=== PATIENT | female | born 1955 | race Caucasian/White ===

== ENCOUNTER 2016-04-09 17:11 | Inpatient (IN) | payer BC, OTHER ==
[2016-04-09] MEDS ORDERED: LORazepam 2 MG/ML SYRINGE IM STA (17:41)
[2016-04-09] MEDS ORDERED: ACETAMINOPHEN TAB 500 MG TAB PO STA (17:41)
[2016-04-09] MEDS ORDERED: LORazepam 2 MG/ML SYRINGE IV STA (18:07)
[2016-04-09 18:18] LABS: Basophils % (A) 0 %; CH 31.2; CHCM 34.6; Eosinophils # (A) 0.1 k/uL (0-0.7); Eosinophils % (A) 1 %; HCT 45.4 % (34.0-46.0); HDW 2.64; HGB 15.6 gm/dL (11.4-16.0); Luc # (Auto) 0.16; Luc % (Auto) 2; Lymphocytes # (A) 1.6 k/uL (1.0-4.8); Lymphocytes % (A) 17 %; MCHC 34.3 g/dL (31.0-37.0); MCV 90.4 fL (80.0-100.0); Mean Platelet Volume 7.6; Monocytes # (A) 0.5 k/uL (0-1.0); Monocytes % (A) 6 %; Neutrophils % (A) 74 %; RBC 5.03 m/uL (3.80-5.40); RDW 12.6 % (11.5-15.5); WBC 9.5 k/uL (3.8-10.6); WBC (Perox) 9.44
[2016-04-09 18:19] LABS: Appearance,Urine Clear (Clear); Bacteria,Urine Rare /hpf; Bilirubin,Urine Negative (Negative); Glucose,Urine (UA) Negative (Negative); Ketones,Urine Negative (Negative); Leukocyte Esterase,Urine Small (Negative); Mucus,Urine Occasional /hpf; Nitrite,Urine Negative (Negative); Particle Count 2010; Protein,Urine Negative (Negative); RBC,Urine 4 /hpf (0-5); Specific Gravity,Urine 1.016 (1.001-1.035); Squamous Epithelial Cell,Urine <1 /hpf (0-4); UA Billing (MACRO vs. MICRO) MICRO; Urobilinogen,Urine <2.0 mg/dL (<2.0); WBC,Urine 12 /hpf (0-5)
[2016-04-09 18:23] LABS: Prothrombin Time 10.4 sec (9.0-12.0)
[2016-04-09 18:26] LABS: ALT 41 U/L (9-52); AST 37 U/L (14-36); Alkaline Phosphatase 134 U/L (38-126); Anion Gap 14 mmol/L; Blood Urea Nitrogen 24 mg/dL (7-17); Calcium 11.5 mg/dL (8.4-10.2); Carbon Dioxide 26 mmol/L (22-30); Chloride 104 mmol/L (98-107); Glucose 117 mg/dL (74-99); Non-African American GFR(MDRD) >60 (>60 ml/min/1.73 sqM); Potassium 3.6 mmol/L (3.5-5.1); Sodium 144 mmol/L (137-145); Total Bilirubin 0.7 mg/dL (0.2-1.3); Total Protein 7.7 g/dL (6.3-8.2)
[2016-04-09 18:30] LABS: Partial Thromboplastin Time 20.3 sec (22.0-30.0)
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
--- NOTE | 2016-04-09 18:48 | XR ---
EXAMINATION TYPE: XR chest 1V DATE OF EXAM: 04/09/2016 6:40 PM COMPARISON: NONE HISTORY: Chest pain TECHNIQUE: Single frontal view of the chest is obtained. FINDINGS: Heart and mediastinum are normal. Lungs are clear. Diaphragm is normal. Bony thorax is int act. There are chest leads. There is no sign of a pneumothorax. IMPRESSION: No active cardiopulmonary disease. Normal heart.
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
[2016-04-09 18:50] LABS: Creatine Kinase MB 1.7 ng/mL (0.0-2.4); Troponin I 0.027 ng/mL (0.000-0.034)
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
[2016-04-09] MEDS ORDERED: NITROGLYCERIN SL TABS 0.4 MG TAB SUBLINGUAL PRN (20:20)
[2016-04-09] MEDS ORDERED: MELATONIN 5 MG TABLET PO PRN (20:25)
[2016-04-09] MEDS: HEPARIN SODIUM,PORCINE 5,000 UNIT/ML 1 ML VIAL IV ONE (21:18)
[2016-04-09] MEDS: HEPARIN SODIUM,PORCINE/D5W PMX 25,000 UNIT in DEXTROSE/WATER 1 500ML.BAG IV SCH (21:18)
[2016-04-09 22:27] VITALS: BMI 28.9
[2016-04-09] MEDS: ACETAMINOPHEN TAB 325 MG TAB PO PRN (22:41)
[2016-04-09] MEDS: ATORVASTATIN 40 MG TAB PO SCH (22:41)
[2016-04-10 00:30] LABS: Creatine Kinase MB 3.1 ng/mL (0.0-2.4); Troponin I 0.05 ng/mL (0.000-0.034)
[2016-04-10 06:40] LABS: Cholesterol 263 mg/dL (<200); HDL Cholesterol 47 mg/dL (40-60); Triglycerides 274 mg/dL (<150)
[2016-04-10 07:00] LABS: Troponin I 0.028 ng/mL (0.000-0.034)
[2016-04-10 07:02] LABS: Creatine Kinase MB 3.9 ng/mL (0.0-2.4)
[2016-04-10] MEDS: ACETAMINOPHEN TAB 325 MG TAB PO PRN ×2 (08:08→18:57)
[2016-04-10] MEDS: ASPIRIN 81 MG CHEW PO SCH (08:09)
[2016-04-10] MEDS ORDERED: ASPIRIN 325 MG TAB PO SCH (09:00)
[2016-04-10] MEDS ORDERED: CHLORTHALIDONE 25 MG TAB PO SCH ×2 (09:00)
[2016-04-10] MEDS ORDERED: LISINOPRIL 10 MG TAB PO SCH (09:00)
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
[2016-04-10] MEDS ORDERED: ALPRAZolam 0.5 MG TAB PO PRN (11:51)
[2016-04-10] MEDS ORDERED: SODIUM CHLORIDE 0.9% 1,000 ML in EMPTY BAG 1 BAG IV ONE (11:51)
[2016-04-10] MEDS ORDERED: ALPRAZolam 0.25 MG TAB PO PRN (11:51)
[2016-04-10] MEDS ORDERED: ASPIRIN 325 MG TAB PO STA (11:51)
[2016-04-10] MEDS ORDERED: NITROGLYCERIN SL TABS 0.4 MG TAB SUBLINGUAL PRN (11:51)
[2016-04-10] MEDS ORDERED: ATORVASTATIN 80 MG TAB PO STA (11:51)
[2016-04-10] MEDS: LISINOPRIL 20 MG TAB PO SCH (13:16)
[2016-04-10] MEDS ORDERED: HEPARIN SODIUM,PORCINE 5,000 UNIT/ML 1 ML VIAL IV PRN (13:21)
[2016-04-10] MEDS ORDERED: HEPARIN SODIUM,PORCINE 5,000 UNIT/ML 1 ML VIAL IV ONE (13:21)
[2016-04-10] MEDS: HEPARIN SODIUM,PORCINE 5,000 UNIT/ML 1 ML VIAL IV ONE (13:30)
[2016-04-10 14:28] LABS: Basophils # (A) 0.1 k/uL (0-0.2); Basophils % (A) 1 %; CH 31.2; CHCM 33.5; Eosinophils # (A) 0.1 k/uL (0-0.7); Eosinophils % (A) 1 %; HCT 45.3 % (34.0-46.0); HDW 2.61; HGB 14.9 gm/dL (11.4-16.0); Luc # (Auto) 0.14; Luc % (Auto) 2; Lymphocytes # (A) 1.5 k/uL (1.0-4.8); Lymphocytes % (A) 22 %; MCH 30.8 pg (25.0-35.0); MCHC 32.9 g/dL (31.0-37.0); MCV 93.5 fL (80.0-100.0); Mean Platelet Volume 8.9; Monocytes # (A) 0.6 k/uL (0-1.0); Monocytes % (A) 8 %; Neutrophils # (A) 4.7 k/uL (1.3-7.7); Neutrophils % (A) 67 %; RBC 4.85 m/uL (3.80-5.40); RDW 12.6 % (11.5-15.5); WBC (Perox) 7.09
[2016-04-10 14:37] LABS: INR 1.1 (<1.1); Prothrombin Time 11.2 sec (9.0-12.0)
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
[2016-04-10] MEDS ORDERED: LIDOCAINE 2% INJ 20 MG/ML (20 ML MDV) ONE (15:50)
[2016-04-10] MEDS ORDERED: diphenhydrAMINE 50 MG/ML 1 ML VIAL ONE (15:51)
[2016-04-10] MEDS ORDERED: MIDAZOLAM 2 MG/2 ML VIAL ONE (15:51)
[2016-04-10] MEDS ORDERED: fentaNYL (PF) 50 MCG/ML 2 ML AMP ONE (16:37)
[2016-04-10] MEDS ORDERED: diphenhydrAMINE 50 MG/ML 1 ML VIAL IVP ONE (16:50)
[2016-04-10] MEDS ORDERED: MIDAZOLAM 2 MG/2 ML VIAL IVP ONE (16:50)
[2016-04-10] MEDS ORDERED: fentaNYL (PF) 50 MCG/ML 2 ML AMP IV ONE (16:50)
[2016-04-10] MEDS ORDERED: IV FLUID CONTINUATION 800 ML IV ONE (16:50)
[2016-04-10] MEDS ORDERED: LIDOCAINE 2% INJ 20 MG/ML SQ ONE (17:01)
[2016-04-10] MEDS ORDERED: IOHEXOL 350 MG/ML 100 ML BOTTLE INJ ONE (17:14)
[2016-04-10] MEDS ORDERED: RX INFO: IV CONTRAST WAS GIVEN 1 EACH MISC MISCELLANE PRN (17:20)
--- NOTE | 2016-04-10 17:30 | P.PCN ---
Date of Procedure: 04/10/16 Preoperative Diagnosis: Abnormal EKG and possible syncopal episode. Rule out coronary artery disease. Abnormal troponins Postoperative Diagnosis: Diffuse coronary artery disease with extensive calcification of the left coronary system with moderate disease in the LAD and circumflex and total occlusion of the nondominant right Procedure(s) Performed: Left heart catheterization Description of Procedure: HISTORY: CONSENT:I have discussed the risks, benefits and alternative therapies for the above-mentioned procedure and for both sedation/analgesia as well as necessary blood product administration, if indicated, as they pertain to this patient. The patient has indicated understanding and acceptance of the risks and procedures discussed. PROCEDURE: Patient was brought to the lab in a fasting state. Patient was given some IV sedation. The right groin is infiltrated with lidocaine and right femoral artery was entered using Seldinger technique. A 6-Singaporean catheter was left in place and selective coronary arteriography and left ventriculography was performed. Patient tolerated the procedure well. Femoral angiogram was performed and Angio-Seal was applied for hemostasis. No immediate complications were noted and patient was transferred to [facility] in a stable condition HEMODYNAMICS: SELECTIVE CORONARY ARTERIOGRAPHY: LEFT MAIN: Normal length and patent at the calcification THE LEFT ANTERIOR DESCENDING CORONARY ARTERY: This is a good caliber vessel with extensive calcification involving the proximal and mid segments. It appears that there is 40% stenosis in midportion which is eccentric. Rest of the vessel has mild diffuse plaque without any critical lesions. THE LEFT CIRCUMFLEX AND IS CORONARY ARTERY: This is a good caliber vessel and dominant giving rise to OM branch and also PLV branch. It has about 40-50% portion in the midportion. THE RIGHT CORONARY ARTERY: This is a nondominant vessel which has a diffuse disease throughout its length with a total occlusion in midportion. Both ipsilateral and contralateral collaterals are seen to the right coronary artery. LEFT VENTRICULOGRAPHY: This revealed normal cardiac silhouette with good systolic function FINAL IMPRESSION: Calcium patient coronary vessels with the mild to moderate disease in the LAD and mid circumflex. Right coronary artery which is nondominant is totally occluded with collaterals from the left coronary system. PLAN: Maximum medical therapy with risk factor modification PROGNOSIS: Fair
[2016-04-10] MEDS: ATORVASTATIN 40 MG TAB PO SCH (20:08)
[2016-04-10] MEDS: METOPROLOL TARTRATE 25 MG TAB PO SCH (20:08)
[2016-04-10] MEDS: HEPARIN SODIUM,PORCINE/D5W PMX 25,000 UNIT in DEXTROSE/WATER 1 500ML.BAG IV SCH (20:22)
[2016-04-11] MEDS: ACETAMINOPHEN TAB 325 MG TAB PO PRN (04:00)
[2016-04-11 05:59] LABS: Basophils # (A) 0.1 k/uL (0-0.2); Basophils % (A) 1 %; CH 31.3; CHCM 33.7; Eosinophils # (A) 0.1 k/uL (0-0.7); Eosinophils % (A) 2 %; HCT 42.3 % (34.0-46.0); HDW 2.64; HGB 13.6 gm/dL (11.4-16.0); Luc # (Auto) 0.12; Luc % (Auto) 2; Lymphocytes # (A) 1.5 k/uL (1.0-4.8); Lymphocytes % (A) 25 %; MCH 30.1 pg (25.0-35.0); MCHC 32.2 g/dL (31.0-37.0); MCV 93.3 fL (80.0-100.0); Mean Platelet Volume 8.4; Monocytes # (A) 0.6 k/uL (0-1.0); Monocytes % (A) 10 %; Neutrophils # (A) 3.7 k/uL (1.3-7.7); Neutrophils % (A) 60 %; RBC 4.53 m/uL (3.80-5.40); RDW 12.9 % (11.5-15.5); WBC 6.1 k/uL (3.8-10.6)
[2016-04-11] MEDS: METOPROLOL TARTRATE 25 MG TAB PO SCH (08:45)
[2016-04-11] MEDS: LISINOPRIL 20 MG TAB PO SCH (08:45)
[2016-04-11] MEDS: ASPIRIN 81 MG CHEW PO SCH (08:45)
[2016-04-11] MEDS ORDERED: FAMOTIDINE 20 MG TAB PO SCH (09:00)
[2016-04-11 10:27] VITALS: PULSE 62
[2016-04-11 10:29] VITALS: BP 119/69; RESP 20; TEMP 97.1
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
--- NOTE | 2016-04-13 08:58 | ECHOF ---
Referral Reason:chest pain MEASUREMENTS -------- HEIGHT: 152.4 cm WEIGHT: 67.1 kg BP: 129/71 RVIDd: 2.6 cm (< 3.3) IVSd: 1.3 cm (0.6 - 1.1) LVIDd: 3.7 cm (3.9 - 5.3) LVPWd: 1.2 cm (0.6 - 1.1) IVSs: 1.7 cm LVIDs: 2.6 cm LVPWs: 1.6 cm LA Diam: 3.3 cm (2.7 - 3.8) LAESV Index (A-L): 24.12 ml/m Ao Diam: 3.4 cm (2.0 - 3.7) AV Cusp: 2.3 cm (1.5 - 2.6) MV EXCURSION: 11.388 mm (> 18.000) MV EF SLOPE: 33 mm/s (70 - 150) EPSS: 0.4 cm MV E Bernard: 0.65 m/s MV DecT: 294 ms MV A Bernard: 0.90 m/s MV E/A Ratio: 0.72 AV maxP.70 mmHg AV meanP.80 mmHg FINDINGS -------- Sinus rhythm. This was a technically good study. The left ventricular size is normal. There is mild concentric left ventricular hypertrophy. Left ventricular systolic function is hyperdynamic with an estimated EF of >70%. The right ventricle is normal in size. The left atrium is normal in size. Normal LA size by volume 22+/-6 ml/m2. The right atrium is normal in size. The aortic valve is trileaflet and appears structurally normal. Peak/mean gradient across the Aortic Valve is 16.70mmHg / 8.80mmHg. Minimal LVOT obstruction Normal appearing mitral valve. No mitral regurgitation. The tricuspid valve appears structurally normal. No regurgitation noted Trace/mild (physiologic) pulmonic regurgitation. The aortic root size is normal. Normal inferior vena cava with normal inspiratory collapse consistent with estimated right atrial pressure of 5 mmHg. There is no pericardial effusion. CONCLUSIONS -------- 1. Sinus rhythm. 2. Peak/mean gradient across the Aortic Valve is 16.70mmHg / 8.80mmHg. 3. Minimal LVOT obstruction 4. Normal appearing mitral valve. 5. No mitral regurgitation. 6. The tricuspid valve appears structurally normal. 7. No regurgitation noted 8. Trace/mild (physiologic) pulmonic regurgitation. 9. The aortic root size is normal. 10. Normal inferior vena cava with normal inspiratory collapse consistent with estimated right atrial pressure of 5 mmHg. 11. There is no pericardial effusion. 12. This was a technically good study. 13. The left ventricular size is normal. 14. There is mild concentric left ventricular hypertrophy. 15. Left ventricular systolic function is hyperdynamic with an estimated EF of >70%. 16. The right ventricle is normal in size. 17. Normal LA size by volume 22+/-6 ml/m2. 18. The right atrium is normal in size. 19. The aortic valve is trileaflet and appears structurally normal. BREAKFAST COOK: Molly Wilhelm RDCS
== END 2016-04-11 10:39 | disposition home or self-care (01) | DRG 287 ==
LOC: EC 17:11 → OBSVTOIN 20:20 → 6SEL 20:20
PROVIDERS: ADMIT Internal Medicine; ATTEND Internal Medicine
PROC: B2111ZZ Fluoroscopy of Multiple Coronary Arteries using Low Osmolar Contrast (ICD-10-PCS; 2016-04-10)
PROC: B2151ZZ Fluoroscopy of Left Heart using Low Osmolar Contrast (ICD-10-PCS; 2016-04-10)
PROC: 4A023N7 Measurement of Cardiac Sampling and Pressure, Left Heart, Percutaneous Approach (ICD-10-PCS; principal; 2016-04-10 16:35)
DX: I25.10 Atherosclerotic heart disease of native coronary artery without angina pectoris (principal); I25.82 Chronic total occlusion of coronary artery; I10 Essential (primary) hypertension; E78.5 Hyperlipidemia, unspecified; F12.90 Cannabis use, unspecified, uncomplicated; Z79.82 Long term (current) use of aspirin; Z79.899 Other long term (current) drug therapy; Z88.2 Allergy status to sulfonamides; Z82.49 Family history of ischemic heart disease and other diseases of the circulatory system; V43.52XA Car driver injured in collision with other type car in traffic accident, initial encounter; Y92.410 Unspecified street and highway as the place of occurrence of the external cause
CPT/HCPCS: 36415; 70450; 71010; 72125; 72170; 80053; 80061; 81001; 82550; 82553; 84484; 85025; 85610; 85730; 87086; 93005; 93306; 93458; 96365; 96372; 96375; 96376; 99291

== ENCOUNTER → 2016-04-20 | Outpatient (CLI) | payer BC ==
--- NOTE | 2016-04-22 09:29 | MM ---
Reason for exam: screening (asymptomatic). Last mammogram was performed 1 year and 3 months ago. History: Patient is postmenopausal and had first child at age 29. Benign stereotactic core biopsy of the right breast, January 14, 2001. Benign stereotactic core biopsy of the right breast, November 22, 2000. 2 core biopsies of the right breast. Physical Findings: A clinical breast exam by your physician is recommended on an annual basis and results should be correlated with mammographic findings. MG 3D Screening Mammo W/Cad Bilateral CC and MLO view(s) were taken. Prior study comparison: January 25, 2015, bilateral MG screening mammo w CAD. October 12, 2013, bilateral MG screening mammo w CAD. The breast tissue is heterogeneously dense. This may lower the sensitivity of mammography. Finding: There are round, diffuse/scattered, fine, stable calcifications in both breasts. Previous mammotome biopsy in the right breast. No significant changes in finding since January 25, 2015 and October 12, 2013. ASSESSMENT: Benign, BI-RAD 2 RECOMMENDATION: Routine screening mammogram of both breasts in 1 year.
== END | disposition home or self-care (01) ==
LOC: RADMAMWWP 08:45
PROVIDERS: ATTEND Family Medicine
DX: Z12.31 Encounter for screening mammogram for malignant neoplasm of breast (principal)
CPT/HCPCS: 77063; G0202

== ENCOUNTER 2016-06-17 10:55 | Day surgery (SDC) | payer BC ==
[2016-06-15 13:11] VITALS: BMI 28.7
[~2016-06-17 10:55] MED LIST: LACTATED RINGERS 1,000 ML IV SCH; LIDOCAINE 1% 20 ML VIAL (10MG/ML) FOR IV START INTRADERMA PRN
[2016-06-17 11:17] VITALS: TEMP 98.2
[2016-06-17] MEDS ORDERED: LIDOCAINE 1% 20 ML VIAL (10MG/ML) FOR IV START INTRADERMA ONE (11:28)
[2016-06-17] MEDS ORDERED: PROPOFOL 10 MG/ML 20 ML VIAL IV ONE (12:42)
[2016-06-17] MEDS ORDERED: LIDOCAINE 1% INJ 10MG/ML (20 ML MDV) ONE (12:42)
--- NOTE | 2016-06-17 13:04 | P.PCN ---
Date of Procedure: 06/17/16 Preoperative Diagnosis: Colon cancer screening Postoperative Diagnosis: Diverticulosis, colon polyp Procedure(s) Performed: Colonoscopy with polypectomy Anesthesia: MAC Surgeon: Slime Wilkins Pathology: other Condition: stable (Polyp) Disposition: PACU Indications for Procedure: The patient presented for colon cancer screening. Her last endoscopy was greater than 10 years ago Operative Findings: The patient's taken to the endoscopy suite where colonoscope is passed per rectum to the cecum. She had a good prep. She has a few small diverticuli scattered in the sigmoid colon. There is one small polyp at about 15 cm removed with hot biopsy forceps. Colon is otherwise without evidence of mass lesion ulcer stricture or other mucosal abnormality. She tolerated the procedure without difficulty and is taken recovery room in satisfactory condition. With the report of the polypectomy and let her know what her follow- up should be. Plan - Discharge Summary Discharge Medication List Aspirin EC [Ecotrin Low Dose] 81 mg PO DAILY 04/09/16 [History] Aspirin/Acetaminophen/Caffeine [Excedrin Extra Strength Caplet] 1 tab PO Q6H PRN 04/09/16 [History] L.acidoph,Paracasei, B.lactis [Probiotic] 1 cap PO DAILY 04/09/16 [History] Melatonin 5 mg PO HS PRN 04/09/16 [History] [place]'s Wort 150 mg PO DAILY 04/09/16 [History] Atorvastatin [Lipitor] 40 mg PO HS #30 tab 04/10/16 [Rx] Lisinopril [Prinivil] 15 mg PO DAILY 06/15/16 [History] metroNIDAZOLE 1% GEL [Metrogel 1%] 1 applic TOPICAL DAILY 06/15/16 [History]
[2016-06-17 13:25] VITALS: BP 123/78; PULSE 78; RESP 18
== END 2016-06-17 13:45 | disposition home or self-care (01) ==
LOC: ORWHC2ENDO 10:55
PROVIDERS: ATTEND Surgery
DX: Z12.11 Encounter for screening for malignant neoplasm of colon (principal); K57.30 Diverticulosis of large intestine without perforation or abscess without bleeding; D12.6 Benign neoplasm of colon, unspecified; I25.10 Atherosclerotic heart disease of native coronary artery without angina pectoris; I10 Essential (primary) hypertension; E78.5 Hyperlipidemia, unspecified; Z79.82 Long term (current) use of aspirin; Z79.899 Other long term (current) drug therapy; Z88.2 Allergy status to sulfonamides; Z88.8 Allergy status to other drugs, medicaments and biological substances
CPT/HCPCS: 88305; 45384; J2001; J2704

== ENCOUNTER → 2016-06-27 | Outpatient (CLI) | payer BC, OTHER ==
[2016-06-27 10:47] LABS: Basophils # (A) 0.1 k/uL (0-0.2); Basophils % (A) 1 %; CH 30.5; CHCM 33.5; Eosinophils # (A) 0.4 k/uL (0-0.7); Eosinophils % (A) 5 %; HCT 42.3 % (34.0-46.0); HDW 2.59; Luc # (Auto) 0.16; Luc % (Auto) 2; Lymphocytes % (A) 27 %; MCH 30.4 pg (25.0-35.0); MCHC 33.2 g/dL (31.0-37.0); MCV 91.7 fL (80.0-100.0); Mean Platelet Volume 7.5; Monocytes # (A) 0.4 k/uL (0-1.0); Monocytes % (A) 6 %; Neutrophils # (A) 4.4 k/uL (1.3-7.7); Neutrophils % (A) 59 %; RBC 4.61 m/uL (3.80-5.40); RDW 12.7 % (11.5-15.5); WBC 7.4 k/uL (3.8-10.6); WBC (Perox) 7.52
[2016-06-27 11:05] LABS: ALT 26 U/L (9-52); AST 24 U/L (14-36); Alkaline Phosphatase 142 U/L (38-126); Anion Gap 12 mmol/L; Blood Urea Nitrogen 21 mg/dL (7-17); Calcium 10.8 mg/dL (8.4-10.2); Carbon Dioxide 25 mmol/L (22-30); Chloride 107 mmol/L (98-107); Cholesterol 177 mg/dL (<200); Creatine Kinase 60 U/L (30-135); Glucose 97 mg/dL (74-99); HDL Cholesterol 51 mg/dL (40-60); Non-African American GFR(MDRD) >60 (>60 ml/min/1.73 sqM); Potassium 5.1 mmol/L (3.5-5.1); Sodium 144 mmol/L (137-145); Total Bilirubin 1.3 mg/dL (0.2-1.3); Total Protein 6.8 g/dL (6.3-8.2); Triglycerides 139 mg/dL (<150)
[2016-06-27 12:48] LABS: Hemoglobin A1C 5.5 % (4.2-6.1)
[2016-06-29 12:07] LABS: ANA w/Reflex to Titer NEGATIVE (NEGATIVE)
== END | disposition home or self-care (01) ==
LOC: LABWHC1 10:28
PROVIDERS: ATTEND Internal Medicine
DX: E78.00 Pure hypercholesterolemia, unspecified (principal); I10 Essential (primary) hypertension; R21 Rash and other nonspecific skin eruption; I25.10 Atherosclerotic heart disease of native coronary artery without angina pectoris
CPT/HCPCS: 36415; 80053; 80061; 82550; 83036; 83516; 84443; 85025; 86038; 86225

== ENCOUNTER → 2017-11-23 | Outpatient (CLI) | payer BC ==
[2017-11-23 11:11] LABS: ALT 46 U/L (9-52); AST 44 U/L (14-36); Cholesterol 173 mg/dL (<200); Creatine Kinase 91 U/L (30-135); HDL Cholesterol 48 mg/dL (40-60); LDL Cholesterol,Calculated 96 mg/dL (0-99); Triglycerides 147 mg/dL (<150)
== END | disposition home or self-care (01) ==
LOC: LABWHC1 10:12
PROVIDERS: ATTEND Internal Medicine Cardiovascular Disease
DX: E78.2 Mixed hyperlipidemia (principal)
CPT/HCPCS: 36415; 80061; 82550; 84450; 84460

== ENCOUNTER → 2018-03-24 | Outpatient (CLI) | payer BC ==
[2018-03-24 16:43] LABS: Albumin 4.3 g/dL (3.80-4.90); Albumin/Globulin Ratio 2.15 (1.20-2.10); Bilirubin, Conjugated 0.2 mg/dL (0.20-0.40); Bilirubin,Unconjugated 0.7 mg/dL; Total Bilirubin 0.9 mg/dL (0.3-1.2); Total Protein 6.3 g/dL (6.2-8.2)
== END | disposition home or self-care (01) ==
LOC: LABWHC1 09:04
PROVIDERS: ATTEND Internal Medicine Cardiovascular Disease
DX: E78.5 Hyperlipidemia, unspecified (principal); R74.8 Abnormal levels of other serum enzymes
CPT/HCPCS: 36415; 80061; 80076

== ENCOUNTER 2018-07-11 04:23 | Emergency (ER) | payer MEDICARE ==
[2018-07-11] MEDS ORDERED: KETOROLAC 30 MG/ML 1 ML VIAL IVP STA (05:09)
[2018-07-11 05:36] LABS: Basophils % (A) 0 %; Eosinophils # (A) 0.2 k/uL (0-0.7); Eosinophils % (A) 2 %; HCT 40.9 % (34.0-46.0); HGB 14.1 gm/dL (11.4-16.0); Lymphocytes # (A) 1.7 k/uL (1.0-4.8); Lymphocytes % (A) 15 %; MCH 29.9 pg (25.0-35.0); MCHC 34.5 g/dL (31.0-37.0); MCV 86.8 fL (80.0-100.0); Mean Platelet Volume 7.6; Monocytes # (A) 0.8 k/uL (0-1.0); Monocytes % (A) 7 %; Neutrophils # (A) 8.5 k/uL (1.3-7.7); Neutrophils % (A) 75 %; Platelet Count 271 k/uL (150-450); RBC 4.72 m/uL (3.80-5.40); RDW 12.9 % (11.5-15.5); WBC 11.3 k/uL (3.8-10.6)
--- NOTE | 2018-07-11 05:40 | ED ---
Abdominal Pain HPI - General Chief Complaint: Abdominal Pain Stated Complaint: abd/flank pain Time Seen by Provider: 07/11/18 04:52 Source: patient Mode of arrival: ambulatory Limitations: no limitations - History of Present Illness Initial Comments: This patient is 63-year-old woman presenting with acute onset of right lower quadrant pain. She states the last time that she had this was about 5 years ago she had a kidney stone. The patient states that at that time she had weeks of pain and did not see a physician until she actually had passed a stone in her urine and had brought it to her primary care physician. Patient denies fever or chills. There is some nausea but no other associated symptoms. MD Complaint: abdominal pain Onset/Timin -: hour(s) Location: RLQ, R flank Radiation: none Migration to: RLQ Severity: severe Quality: sharp Consistency: constant Improves With: movement Worsens With: nothing Associated Symptoms: other (Urgency/frequency) - Related Data Home Medications Medication Instructions Recorded Confirmed Aspirin EC [Ecotrin Low Dose] 81 mg PO DAILY 04/09/16 06/17/16 Aspirin/Acetaminophen/Caffeine 1 tab PO Q6H PRN 04/09/16 06/17/16 [Excedrin Extra Strength Caplet] L.acidoph,Paracasei, B.lactis 1 cap PO DAILY 04/09/16 06/17/16 [Probiotic] Melatonin 5 mg PO HS PRN 04/09/16 06/17/16 [place]'s Wort 150 mg PO DAILY 04/09/16 06/17/16 Lisinopril [Prinivil] 15 mg PO DAILY 06/15/16 06/17/16 metroNIDAZOLE 1% GEL [Metrogel 1%] 1 applic TOPICAL DAILY 06/15/16 06/17/16 Previous Rx's Medication Instructions Recorded Atorvastatin [Lipitor] 40 mg PO HS #30 tab 04/10/16 Ciprofloxacin HCl [Cipro] 500 mg PO Q12HR #14 tablet 07/11/18 Hydrocodone/Acetaminophen [[place] 1 each PO Q6HR PRN #20 tab 07/11/18 5-325] Ondansetron Odt [Zofran ODT] 4 mg PO Q8HR PRN #10 tab 07/11/18 Tamsulosin [Flomax] 0.4 mg PO DAILY #14 cap 07/11/18 Allergies Allergy/AdvReac Type Severity Reaction Status Date / Time Sulfa (Sulfonamide Allergy Swelling Verified 07/11/18 04:42 Antibiotics) hydrochlorothiazide AdvReac Rapid Verified 07/11/18 04:42 Heart Rate Review of Systems ROS Statement: Those systems with pertinent positive or pertinent negative responses have been documented in the HPI. ROS Other: All systems not noted in ROS Statement are negative. Constitutional: Denies: fever, chills Respiratory: Denies: cough, dyspnea Cardiovascular: Denies: chest pain, palpitations, edema Gastrointestinal: Reports: abdominal pain. Denies: vomiting, diarrhea, constipation, melena, hematochezia Genitourinary: Reports: urgency, frequency. Denies: dysuria, hematuria, discharge Musculoskeletal: Denies: back pain Skin: Denies: rash Neurological: Denies: headache, weakness Past Medical History Past Medical History: Hyperlipidemia, Hypertension History of Any Multi-Drug Resistant Organisms: None Reported Past Surgical History: Section, Heart Catheterization, Hysterectomy Additional Past Surgical History / Comment(s): Right breast biopsy-benign Past Anesthesia/Blood Transfusion Reactions: No Reported Reaction Past Psychological History: No Psychological Hx Reported Smoking Status: Never smoker Past Alcohol Use History: None Reported Past Drug Use History: None Reported - Past Family History Father Family Medical History: Diabetes Mellitus Additional Family Medical History / Comment(s): benign brain tumor, at age 50 Mother Family Medical History: Congestive Heart Failure (CHF), Coronary Artery Disease (CAD), Myocardial Infarction ([place]) Additional Family Medical History / Comment(s): Mother had CABG at age 63 CABG 5 vessel, developed CHF and Brother(s) Additional Family Medical History / Comment(s): Brother has history of four- vessel CABG at a young age. She has one sister with no major medical problems. General Exam Limitations: no limitations General appearance: alert, in no apparent distress Head exam: Present: atraumatic, normocephalic Eye exam: Present: normal appearance Respiratory exam: Present: normal lung sounds bilaterally. Absent: respiratory distress, wheezes, rales, rhonchi, stridor Cardiovascular Exam: Present: regular rate, normal rhythm, normal heart sounds. Absent: systolic murmur, diastolic murmur, rubs, gallop GI/Abdominal exam: Present: soft, normal bowel sounds. Absent: distended, tenderness, guarding, rebound, rigid, mass, pulsatile mass, hernia Extremities exam: Present: normal inspection, normal capillary refill. Absent: pedal edema, calf tenderness Back exam: Present: normal inspection, CVA tenderness (R). Absent: CVA tenderness (L) Neurological exam: Present: alert Skin exam: Present: warm, dry, intact, normal color. Absent: rash Course Vital Signs 07/11/18 04:38 Temperature 97.8 F Pulse Rate 66 Respiratory 24 Rate Blood Pressure 144/70 O2 Sat by Pulse 100 Oximetry Medical Decision Making - Medical Decision Making Patient is 63-year-old woman with history of physical exam consistent with renal colic. The computed tomography scan does confirm kidney stone. Given the appearance of the computed tomography scan I did discuss the case with Dr. Davis, who has also reviewed the case and will follow with the patient closely to ensure that there is no further compromise patient's renal function. Di scussed all this with patient who is clear with the follow-up plan as well as return parameters. - Lab Data Result diagrams: 07/11/18 05:06 07/11/18 05:06 Lab Results 07/11/18 07/11/18 07/11/18 Range/Units 05:06 05:06 05:36 WBC 11.3 H (3.8-10.6) k/uL RBC 4.72 (3.80-5.40) m/uL Hgb 14.1 (11.4-16.0) gm/dL Hct 40.9 (34.0-46.0) % MCV 86.8 (80.0-100.0) fL MCH 29.9 (25.0-35.0) pg MCHC 34.5 (31.0-37.0) g/dL RDW 12.9 (11.5-15.5) % Plt Count 271 (150-450) k/uL Neutrophils % 75 % Lymphocytes % 15 % Monocytes % 7 % Eosinophils % 2 % Basophils % 0 % Neutrophils # 8.5 H (1.3-7.7) k/uL Lymphocytes # 1.7 (1.0-4.8) k/uL Monocytes # 0.8 (0-1.0) k/uL Eosinophils # 0.2 (0-0.7) k/uL Basophils # 0.0 (0-0.2) k/uL Sodium 140 (137-145) mmol/L Potassium 4.0 (3.5-5.1) mmol/L Chloride 109 H (98-107) mmol/L Carbon Dioxide 22 (22-30) mmol/L Anion Gap 9 mmol/L BUN 19 H (7-17) mg/dL Creatinine 1.08 H (0.52-1.04) mg/dL Est GFR (CKD-EPI)AfAm 62 (>60 ml/min/1.73 sqM) Est GFR (CKD-EPI)NonAf 54 (>60 ml/min/1.73 sqM) Glucose 112 H (74-99) mg/dL Calcium 11.2 H (8.4-10.2) mg/dL Total Bilirubin 0.9 (0.2-1.3) mg/dL AST 31 (14-36) U/L ALT 34 (9-52) U/L Alkaline Phosphatase 186 H (38-126) U/L Total Protein 7.0 (6.3-8.2) g/dL Albumin 4.2 (3.5-5.0) g/dL Amylase 78 (30-110) U/L Lipase 241 (23-300) U/L Urine Color Yellow Urine Appearance Clear (Clear) Urine pH 6.5 (5.0-8.0) Ur Specific [place] 1.012 (1.001-1.035) Urine Protein Negative (Negative) Urine Glucose (UA) Negative (Negative) Urine Ketones Negative (Negative) Urine Blood Moderate H (Negative) Urine Nitrite Negative (Negative) Urine Bilirubin Negative (Negative) Urine Urobilinogen <2.0 (<2.0) mg/dL Ur Leukocyte Esterase Large H (Negative) Urine RBC 171 H (0-5) /hpf Urine WBC 41 H (0-5) /hpf Ur Squamous Epith Cells <1 (0-4) /hpf Urine Bacteria Rare H (None) /hpf Urine Mucus Rare H (None) /hpf Disposition Clinical Impression: Calculus of kidney Disposition: HOME SELF-CARE Condition: Good Prescriptions: Ciprofloxacin HCl [Cipro] 500 mg PO Q12HR #14 tablet Tamsulosin [Flomax] 0.4 mg PO DAILY #14 cap Hydrocodone/Acetaminophen [[place] 5-325] 1 each PO Q6HR PRN #20 tab PRN Reason: Pain Ondansetron Odt [Zofran ODT] 4 mg PO Q8HR PRN #10 tab PRN Reason: Nausea Is patient prescribed a controlled substance at d/c from ED?: Yes When asked, does pt state using other controlled substances?: No If prescribed controlled substance>3 days was MAPS reviewed?: Prescribed <3 Days If opioid is for acute pain is fill amount 7 days or less?: Yes If Rx opioid, was Start Talking consent form obtained?: Yes Referrals: Leonel Parisi MD [Primary Care Provider] - 1-2 days Lonnie Mathew MD [STAFF PHYSICIAN] - 1-2 days
[2018-07-11 06:24] LABS: Albumin 4.2 g/dL (3.5-5.0); Calcium 11.2 mg/dL (8.4-10.2); Total Bilirubin 0.9 mg/dL (0.2-1.3)
[2018-07-11 06:27] LABS: Appearance,Urine Clear (Clear); Bacteria,Urine Rare /hpf; Bilirubin,Urine Negative (Negative); Blood,Urine Moderate (Negative); Color,Urine Yellow; Glucose,Urine (UA) Negative (Negative); Ketones,Urine Negative (Negative); Leukocyte Esterase,Urine Large (Negative); Mucus,Urine Rare /hpf; Nitrite,Urine Negative (Negative); PH, Urine 6.5 (5.0-8.0); Protein,Urine Negative (Negative); RBC,Urine 171 /hpf (0-5); Specific Gravity,Urine 1.012 (1.001-1.035); Squamous Epithelial Cell,Urine <1 /hpf (0-4); Urobilinogen,Urine <2.0 mg/dL (<2.0); WBC,Urine 41 /hpf (0-5)
[2018-07-11] MEDS ORDERED: TAMSULOSIN 0.4 MG CAP.ER.24H PO STA (07:56)
--- NOTE | 2018-07-11 08:06 | CT ---
EXAMINATION TYPE: CT abdomen pelvis wo con DATE OF EXAM: 07/11/2018 COMPARISON: None HISTORY: Flank pain rule out calculus. Examination of the solid and hollow viscera is limited given the lack of contrast. FINDINGS: LUNG BASES: No evidence for nodule. No evidence for infiltrate. LIVER/GB: The gallbladder is unremarkable. No space-occupying hepatic lesion. PANCREAS: No pancreatic mass identified. No inflammatory process seen. SPLEEN: No evidence for splenomegaly. No intrasplenic lesions seen. ADRENALS: No adrenal nodules identified. No evidence for thickening. KIDNEYS: Mild right-sided hydroureteronephrosis secondary to a distal right ureteral calculus measuri ng approximately 3 to 4 mm. Additional nonobstructing calculus lower pole right kidney. There is jason re left-sided hydroureteronephrosis with renal parenchymal thinning suggesting chronic process. There is a distal left ureteral calculus identified measuring 6.5 mm in greatest transverse dimension. Add itional nonobstructing calculi lower pole left kidney. No evidence for distinct solid renal mass. Pro bable left renal cyst. BOWEL: Appendix has a normal appearance. No evidence of bowel obstruction. No inflammatory process. Lymph nodes: No evidence for adenopathy greater than 1 cm. Abdominal aorta: Atheromatous changes seen. No evidence for aneurysm. Genital organs: No significant abnormality. Other: No significant abnormality. IMPRESSION: 1. Bilateral distal ureteral calculi left greater than right. Severe left-sided hydronephrosis with r enal parenchymal thinning suggests chronic process. Mild right-sided hydronephrosis as discussed usha palumbo
[2018-07-11 08:53] VITALS: BP 132/68; PULSE 72; RESP 18; TEMP 98
== END 2018-07-11 08:45 | disposition home or self-care (01) ==
LOC: EC 04:23
DX: N20.0 Calculus of kidney (principal); I10 Essential (primary) hypertension; Z90.710 Acquired absence of both cervix and uterus; Z98.890 Other specified postprocedural states; Z79.82 Long term (current) use of aspirin; Z79.899 Other long term (current) drug therapy; Z88.2 Allergy status to sulfonamides; Z88.8 Allergy status to other drugs, medicaments and biological substances
CPT/HCPCS: 36415; 80053; 82150; 83690; 85025; 81001; 87086; 74176; 99284; 96374; J1885

== ENCOUNTER → 2018-07-13 | Outpatient (CLI) | payer MEDICARE | LOC: LABPAT 13:45 | PROVIDERS: ATTEND Urology | DX: Z01.818 Encounter for other preprocedural examination (principal); Z01.812 Encounter for preprocedural laboratory examination; N13.2 Hydronephrosis with renal and ureteral calculous obstruction | CPT/HCPCS: 36415; 82310; 83970; 93005 ==

== ENCOUNTER → 2018-07-15 | Day surgery (SDC) | payer MEDICARE ==
[2018-07-13 15:41] VITALS: BMI 28.7
--- NOTE | 2018-07-14 18:50 | P.GSHP ---
History of Present Illness H&P Date: 07/14/18 Chief Complaint: Right flank pain The patient is a 63-year-old white female who passed a kidney stone 5 years ago. She now presents with a several-day history of right flank pain. A computed tomography scan shows mild right hydronephrosis due to a 3-4 mm right distal ureteral calculus, as well as a small right lower pole renal calculus. The computed tomography scan also shows severe left hydronephrosis with renal cortical thinning due to a 6.5 mm left distal ureteral calculus. Her serum calcium and parathyroid hormone levels are elevated, and it also appears that the kidney stones are due to hyperparathyroidism. Alternative treatment options have been reviewed, and she has elected to undergo bilateral ureteroscopy with holmium laser lithotripsy. Unfortunately, it is unlikely she will regain much function of her left kidney. - Constitutional Constitutional: Denies chills, Denies fever - Gastrointestinal Gastrointestinal: Reports nausea - Genitourinary (Female) Genitourinary: Reports flank pain, Reports hematuria, Reports kidney stones Past Medical History Past Medical History: Hyperlipidemia, Hypertension, Osteoarthritis (OA) Additional Past Medical History / Comment(s): kidney stones, History of Any Multi-Drug Resistant Organisms: None Reported Past Surgical History: Breast Surgery, Section, Heart Catheterization, Hysterectomy Additional Past Surgical History / Comment(s): Right breast biopsy Past Anesthesia/Blood Transfusion Reactions: No Reported Reaction Smoking Status: Never smoker - Past Family History Father Family Medical History: Diabetes Mellitus Additional Family Medical History / Comment(s): benign brain tumor, at age 50 Mother Family Medical History: No Reported History Additional Family Medical History / Comment(s): Mother had CABG at age 63 CABG 5 vessel, developed CHF and Brother(s) Additional Family Medical History / Comment(s): Brother has history of four- vessel CABG at a young age. She has one sister with no major medical problems. Medications and Allergies Home Medications Medication Instructions Recorded Confirmed Type Atorvastatin Calcium [Lipitor] 80 mg PO HS 07/11/18 07/13/18 History Ciprofloxacin HCl [Cipro] 500 mg PO Q12HR #14 tablet 07/11/18 07/13/18 Rx Hydrocodone/Acetaminophen [[place] 1 each PO Q6HR PRN #20 tab 07/11/18 07/13/18 Rx 5-325] Losartan Potassium [Cozaar] 100 mg PO DAILY 07/11/18 07/13/18 History Ondansetron Odt [Zofran ODT] 4 mg PO Q8HR PRN #10 tab 07/11/18 07/13/18 Rx Tamsulosin [Flomax] 0.4 mg PO DAILY #14 cap 07/11/18 07/13/18 Rx amLODIPine BESYLATE [Norvasc] 10 mg PO 1500 07/11/18 07/13/18 History Aspirin [Adult Low Dose Aspirin EC] 81 mg PO DAILY 07/13/18 07/13/18 History Aspirin/Acetaminophen/Caffeine 1 each PO DIRECTED PRN 07/13/18 07/13/18 History [Excedrin Extra Strength Caplet] L.acidoph,Paracasei, B.lactis 1 each PO DAILY 07/13/18 07/13/18 History [Probiotic] [place]'s Wort 300 mg PO DAILY 07/13/18 07/13/18 History Ubidecarenone [Co Q-10] 100 mg PO DAILY 07/13/18 07/13/18 History Allergies Allergy/AdvReac Type Severity Reaction Status Date / Time Sulfa (Sulfonamide Allergy Swelling Verified 07/13/18 15:28 Antibiotics) hydrochlorothiazide AdvReac Rapid Verified 07/13/18 15:28 Heart Rate Surgical - Exam - General well developed, well nourished, no distress - Neck no masses, trachea midline - Respiratory normal respiratory effort, clear to auscultation - Cardiovascular Rhythm: regular Abnormal Heart Sounds: no systolic murmur, no diastolic murmur, no rub, no S3 Gallop, no S4 Gallop, no click, no other - Abdomen Abdomen: soft, tender (Mild right lower quadrant tenderness to palpation), no guarding, no rigid, no rebound - Psychiatric oriented to time, oriented to person, oriented to place, speech is normal, memory intact Results - Imaging CT scan - abdomen: report reviewed, image reviewed Assessment and Plan (1) Calculus of ureter Status: Acute Code(s): N20.1 - CALCULUS OF URETER SNOMED Code(s): 44766383 (2) Hydronephrosis with renal and ureteral calculus obstruction Status: Acute Code(s): N13.2 - HYDRONEPHROSIS WITH RENAL AND URETERAL CALCULOUS OBSTRUCTION SNOMED Code(s): 928735635 Plan: Cystoscopy, bilateral retrograde pyelogram, bilateral ureteroscopy with Holmium laser lithotripsy and stent insertion. The procedure has been reviewed in detail with the patient. Potential risks associated with this procedure include anesthesia, bleeding, infection, and ureteral injury. She is aware of the possible need for secondary treatment.
[~2018-07-15] MED LIST changes: +DEXAMETHASONE SOD PHOSPHATE 10 MG/ML 1 ML VIAL IV ONE; +GLYCOPYRROLATE 0.2 MG/ML 2 ML VIAL ONE; +HYDROmorphone 0.5 MG/0.5 ML SYRINGE IVP PRN; +IOPAMIDOL-300 50ML BTL MISCELLANE ONE; +LIDOCAINE 1% 20 ML VIAL (10MG/ML) FOR IV START INTRADERMA ONE; -LIDOCAINE 1% 20 ML VIAL (10MG/ML) FOR IV START INTRADERMA PRN; +LIDOCAINE 1% INJ 10MG/ML (20 ML MDV) ONE; +MIDAZOLAM (PF) 2 MG/2 ML VIAL IV PRN; +MIDAZOLAM 2 MG/2 ML VIAL ONE; +NEOSTIGMINE 1 MG/ML 10 ML VIAL ONE; +ONDANSETRON 4 MG/2 ML VIAL IVP ONE; +PROPOFOL 10 MG/ML 20 ML VIAL IV ONE; +ROCURONIUM BROMIDE 10 MG/ML 10 ML VIAL IV ONE; +ceFAZolin (PMX-bag) 1,000 MG in DEXTROSE/WATER 1 50ML.BAG IVPB ONE; +ePHEDrine SULFATE/0.9% NACL/PF 50 MG/5 ML SYRINGE IV ONE; +fentaNYL (PF) 50 MCG/ML 2 ML AMP ONE
--- NOTE | 2018-07-15 12:22 | XR ---
EXAMINATION TYPE: XR KUB DATE OF EXAM: 07/15/2018 COMPARISON: NONE HISTORY: Pain TECHNIQUE: Single supine KUB image of the abdomen is obtained FINDINGS: Small bowel demonstrates no evidence for dilatation or air fluid levels. Gas and fecal material is seen in non-distended colon. No convincing evidence for pneumoperitoneum. No unusual calcifications. The lung bases are clear. The osseous structures are intact. IMPRESSION: 1. Overall nonobstructive bowel gas pattern.
[2018-07-15 16:41] VITALS: TEMP 97.4
--- NOTE | 2018-07-15 17:03 | P.OP ---
Date of Procedure: 07/15/18 Preoperative Diagnosis: Bilateral ureteral calculi, bilateral renal calculi Postoperative Diagnosis: Same Procedure(s) Performed: Cystoscopy, bilateral ureteroscopy with Holmium laser lithotripsy, bilateral ureteral stent insertion Anesthesia: DEVONTE Surgeon: Ryan Davis Estimated Blood Loss (ml): 10 IV fluids (ml): 1,100 Pathology: other (Calculus fragments for chemical analysis.) Condition: stable Disposition: PACU Indications for Procedure: The patient is a 63-year-old white female who passed a kidney stone 5 years ago. She now presents with a several-day history of right flank pain. A computed tomography scan shows mild right hydronephrosis due to a 3-4 mm right distal ureteral calculus, as well as a small right lower pole renal calculus. The computed tomography scan also shows severe left hydronephrosis with renal cortical thinning due to a 6.5 mm left distal ureteral calculus. Her serum calcium and parathyroid hormone levels are elevated, and it also appears that the kidney stones are due to hyperparathyroidism. Alternative treatment options have been reviewed, and she has elected to undergo bilateral ureteroscopy with holmium laser lithotripsy. Unfortunately, it is unlikely she will regain much function of her left kidney. Operative Findings: 1) 2 left distal ureteral calculi. The more proximal calculus was the larger of the two, and was impacted. Both were fragmented completely. The ureter proximal to this was dilated. 2) Right distal ureteral calculus and right lower pole renal calculus fragmented. Description of Procedure: The patient was taken to the operating room and placed in the dorsolithotomy position, with legs supported in Talha stirrups. The external genitalia was prepped and draped sterilely. The 30 lens was used to introduce the 22-[place] Stortz cystoscopic sheath through the urethra and into the bladder under direct vision. The bladder was examined in its entirety. Both ureteral orifices were normal anatomic location and configuration. No tumors or foreign bodies were seen. The [facility] semirigid ureteroscope was advanced into the bladder, and the left ureteral orifice was cannulated. The ureteroscope was advanced up to a distal ureteral calculus, and the 200 holmium laser probe was passed through the ureteroscope. The calculus was fragmented using a dusting technique. The ureteroscope was withdrawn, and the right ureteral orifice was cannulated. However, the intramural portion of the ureter was narrowed. A 0.035 inch Glidewire was passed through the ureteroscope. The lumen was identified, and the Glidewire was advanced through the lumen and up to the right kidney. A 15- [place], 4 cm balloon dilating catheter was passed over the wire, and this was used to dilate the intramural portion of the ureter. Once this was performed, the balloon dilating catheter and Glidewire were removed. The ureteroscope was passed into the bladder, and a calculus was seen at the ureteral orifice. Holmium laser lithotripsy was performed, fragmenting this along with a second calculus of similar size. There were no residual calculi seen. The semirigid ureteroscope was removed, and the Olympus flexible ureteroscope was passed into the bladder. The right ureteral orifice was cannulated, and the flexible ureteroscope was advanced under direct vision, up to the kidney. A small calculus was identified within a lower pole calyx, and this was fragmented using the Holmium laser. The Glidewire was passed through the ureteroscope, which was removed. The Glidewire was backloaded into the cystoscope, which was passed into the bladder. A 24 cm, 4.5-[place] double-J ureteral stent was placed over the wire. Proper stent positioning was verified fluoroscopically and endoscopically. The Glidewire was then passed through the left ureteral orifice, but it could be advanced only a short distance. Therefore, the cystoscope was removed, and the semirigid ureteroscope was passed into the bladder. The ureteroscope was advanced under direct vision, and some blood and calculus fragments were identified. The 200 micron Holmium laser probe was passed through the ureteroscope, and lithotripsy was performed. As the procedur e ensued, it was evident that this was a tightly impacted calculus. Utilizing a dusting technique, the calculus was fragmented to completion. The ureteroscope was then advanced up to the proximal ureter, which was dilated. The ureteroscope was slowly withdrawn to ensure that there were no residual calculus fragments within the ureter. There was no evidence of ureteral perforation. The Glidewire was passed through the ureteroscope and up to the left renal pelvis. The ureteroscope was removed, and the Glidewire was backloaded into the cystoscope, which was passed into the bladder. A 24 cm, 4.5-[place] double-J ureteral stent was placed over the wire. Proper stent positioning was verified fluoroscopically and endoscopically. The bladder was emptied, and multiple tiny calculus fragments were removed. Several were sent for chemical analysis. The cystoscope was removed and the procedure was terminated. The patient tolerated the procedure well and was taken to the recovery room in stable condition.
[2018-07-15 17:25] VITALS: BP 171/94; PULSE 77; RESP 17
--- NOTE | 2018-07-18 07:57 | FL ---
EXAMINATION TYPE: FL guidance operating room DATE OF EXAM: 07/15/2018 FLUOROSCOPY Fluoroscopy time of 42 seconds was used during lithotripsy and right and left stents. 1 image/s docu ment/s the procedure.
== END | disposition home or self-care (01) ==
LOC: OR 11:58
PROVIDERS: ATTEND Urology
DX: N13.2 Hydronephrosis with renal and ureteral calculous obstruction (principal); E21.3 Hyperparathyroidism, unspecified; E78.5 Hyperlipidemia, unspecified; I10 Essential (primary) hypertension; M19.90 Unspecified osteoarthritis, unspecified site; Z79.899 Other long term (current) drug therapy; Z79.82 Long term (current) use of aspirin; Z88.2 Allergy status to sulfonamides; Z88.8 Allergy status to other drugs, medicaments and biological substances; Z87.442 Personal history of urinary calculi
CPT/HCPCS: 82365; 74018; 52356; C2625; C1758; C1769; C1894; J2250; J1100; J2710; J2405; J2001; J3010; J0690; J2704; Q9967

== ENCOUNTER → 2018-07-21 | Outpatient (CLI) | payer MEDICARE ==
--- NOTE | 2018-07-21 15:29 | NM ---
EXAMINATION TYPE: NM parathyroid w/spect DATE OF EXAM: 07/21/2018 COMPARISON: CT cervical spine April 09, 2016 HISTORY: Hyperparathyroidism. TECHNIQUE: Following administration of 23.9 mCi Tc99m Sestamibi. Anterior projection images of the neck and ches t were obtained 10 minutes and 3 hours post injection. SPECT images of the neck and chest were obtai geri and reconstructed in three axes. FINDINGS: Thyroid tracer washout: Delayed images demonstrate less than optimal tracer washout from the thyroid with slightly more prominent uptake lower pole level left thyroid. Parathyroid uptake: None. The 3 hour delayed images demonstrate mild asymmetric increased uptake at l evel of lower pole left thyroid bed. Normal uptake: There is physiological tracer uptake in the myocardium, salivary glands, and thyroid g land initially. There is asymmetric increased uptake involving the mid to lower pole left thyroid lob e IMPRESSION: Suboptimal study, incomplete washout from thyroid, mild increase uptake delayed images lower pole lef t thyroid bed could reflect adenoma at this level. Correlate with neck ultrasound advised. This uptak e is less prominent on initial images were there is more prominent uptake at this level versus remain vicenta of thyroid gland. No significant thyroid nodule seen on 2017 CT to correlate.
== END | disposition home or self-care (01) ==
LOC: RADNMMAIN 11:09
PROVIDERS: ATTEND Urology
DX: R94.6 Abnormal results of thyroid function studies (principal); Z88.2 Allergy status to sulfonamides; Z88.8 Allergy status to other drugs, medicaments and biological substances
CPT/HCPCS: 78071; A9500

== ENCOUNTER → 2018-08-18 | Outpatient (CLI) | payer MEDICARE ==
--- NOTE | 2018-08-18 15:24 | BD ---
EXAMINATION TYPE: Axial Bone Density DATE OF EXAM: 08/18/2018 COMPARISON: NONE CLINICAL HISTORY: Postmenopausal female Height: 5 FT Weight: 144 FRAX RISK QUESTIONS: RISK FACTORS HISTORY OF: Family History of Osteoporosis: YES Active: YES Postmenopausal woman: TOTAL HYST AGE 43 Hyperparathyroidism: YES MEDICATIONS: Additional Medications: LOSARTIN, AMOLODIPINE, LIPITOR, PROBIOTIC, COQ10 Additional History: EXAM MEASUREMENTS: Bone mineral densitometry was performed using the Spiced Bits System. Bone mineral density as measured about the Lumbar spine is: ----- L1-L4(G/cm2): 0.901 T Score Values are as follows: ----- L2: -2.6 ----- L3: -2.8 ----- L4: -2.4 ----- L1-L4: -2.3 Bone mineral density has: DECREASED -20.3 % since study of: 2002 Bone mineral density about the R hip (g/cm2): 0.618 Bone mineral density about the L hip (g/cm2): 0.651 T Score values are as follows: -----R Neck: -3.0 -----L Neck: -2.8 -----R Total: -1.9 -----L Total: -2.1 Bone mineral density has: DECREASED -17.5 % since study of: 2002 IMPRESSION: Osteopenia (T Score between -2.5 and -1). There is slightly increased risk of fracture and the patient may be considered for treatment. Re-Screen 2-5 years. NOTE: T-SCORE=SD OF THE YOUNG ADULT MEAN.
[2018-08-18 15:30] LABS: Basophils # (A) 0.1 k/uL (0-0.2); Basophils % (A) 1 %; Eosinophils # (A) 0.2 k/uL (0-0.7); Eosinophils % (A) 3 %; HCT 38.9 % (34.0-46.0); HGB 12.5 gm/dL (11.4-16.0); Lymphocytes # (A) 1.9 k/uL (1.0-4.8); Lymphocytes % (A) 27 %; MCHC 32.2 g/dL (31.0-37.0); MCV 90.1 fL (80.0-100.0); Mean Platelet Volume 7.6; Monocytes # (A) 0.6 k/uL (0-1.0); Monocytes % (A) 8 %; Neutrophils # (A) 4.3 k/uL (1.3-7.7); Neutrophils % (A) 60 %; Platelet Count 279 k/uL (150-450); RBC 4.32 m/uL (3.80-5.40); WBC 7.2 k/uL (3.8-10.6)
[2018-08-18 15:49] LABS: Magnesium 1.8 mg/dL (1.6-2.3); Potassium 4.7 mmol/L (3.5-5.1); Total Bilirubin 0.8 mg/dL (0.2-1.3); Total Protein 6.6 g/dL (6.3-8.2)
--- NOTE | 2018-08-19 10:37 | MM ---
Reason for exam: screening (asymptomatic). Last mammogram was performed 2 years and 4 months ago. History: Patient is postmenopausal and had first child at age 29. Benign stereotactic core biopsy of the right breast, January 14, 2001. Benign stereotactic core biopsy of the right breast, November 22, 2000. 2 core biopsies of the right breast. Physical Findings: A clinical breast exam by your physician is recommended on an annual basis and results should be correlated with mammographic findings. MG 3D Screening Mammo W/Cad Bilateral CC and MLO view(s) were taken. Prior study comparison: April 20, 2016, bilateral MG 3d screening mammo w/cad. January 25, 2015, bilateral MG screening mammo w CAD. The breast tissue is heterogeneously dense. This may lower the sensitivity of mammography. No significant changes when compared with prior studies. ASSESSMENT: Benign, BI-RAD 2 RECOMMENDATION: Routine screening mammogram of both breasts in 1 year.
== END | disposition home or self-care (01) ==
LOC: RADMAMWWP 13:59
PROVIDERS: ATTEND Internal Medicine
DX: Z12.31 Encounter for screening mammogram for malignant neoplasm of breast (principal); M85.80 Other specified disorders of bone density and structure, unspecified site; M81.0 Age-related osteoporosis without current pathological fracture; I10 Essential (primary) hypertension
CPT/HCPCS: 36415; 77063; 77067; 77080; 80053; 83735; 85025

== ENCOUNTER → 2018-09-22 | Outpatient (CLI) | payer MEDICARE ==
--- NOTE | 2018-09-22 16:16 | US ---
EXAMINATION TYPE: US kidneys/renal and bladder DATE OF EXAM: 09/22/2018 COMPARISON: 07/11/2018 CLINICAL HISTORY: 63-year-old female R93.4 HX OF HYDRONEPHROSIS F/U. Pt states bilateral lithotripsy 3 months ago, renal stents removed 2 months ago TECHNIQUE: Multiple sonographic images of the kidneys and bladder are obtained. FINDINGS: EXAM MEASUREMENTS: Right Kidney: 10.3 x 5.7 x 5.7 cm Left Kidney: 9.3 x 4.7 x 3.8 cm Right Kidney: Mild pelvicaliectasis with a suspected calculus in the midpole measuring 6mm Left Kidney: Moderate to severe hydronephrosis with suspected calculus at the lower pole measuring 8m m Bladder: wnl Bilateral Jets seen: Only right jet visualized IMPRESSION: 1. Moderate to severe left-sided hydronephrosis. The left ureteral jet is not visualized. This could be as a result of chronic kidney injury secondary to the long-standing hydronephrosis. Persistent ure teral obstruction is also a possibility. 2. Mild right-sided pelvicaliectasis/hydronephrosis. There is visualization of the right ureteral jet . 3. Possible 6 mm nonobstructive right renal calculus and 8 mm on the left.
== END | disposition home or self-care (01) ==
LOC: RADUSWWP 12:28
PROVIDERS: ATTEND Urology
DX: Z09 Encounter for follow-up examination after completed treatment for conditions other than malignant neoplasm (principal); Z87.448 Personal history of other diseases of urinary system; R93.41 Abnormal radiologic findings on diagnostic imaging of renal pelvis, ureter, or bladder
CPT/HCPCS: 76770

== ENCOUNTER → 2018-12-02 | Outpatient (CLI) | payer MEDICARE ==
--- NOTE | 2018-12-04 07:12 | US ---
EXAMINATION TYPE: US kidneys/renal and bladder DATE OF EXAM: 12/02/2018 COMPARISON: NONE CLINICAL HISTORY: Calculus of kidney N20.0, R93.4 Hx Hydronephrosis. History of kidney stones and hyd ronephrosis EXAM MEASUREMENTS: Right Kidney: 9.1 x 5.4 x 4.7 cm Left Kidney: 8.9 x 4.1 x 4.1 cm Right Kidney: no evidence of hydronephrosis. Previously seen caliectasis is resolved. Left Kidney: Mild to moderate hydronephrosis. Thin renal cortex, cystic area = 1.0 x 1.0 x 1.0cm, dil ated pyramids, possible stone mid = 0.6cm Bladder: not fully distended Bilateral Jets seen: no IMPRESSION: 1. Improved degree of hydronephrosis on the left, previously moderate to severe and now mild to moder ate. Cortical renal thinning suggests chronicity. Previously seen right-sided pelvic caliectasis has resolved. 2. Redemonstration of a possible 6 mm nonobstructive calculus on the left and simple appearing 1 cm c yst.
--- NOTE | 2018-12-04 07:22 | XR ---
EXAMINATION TYPE: XR KUB DATE OF EXAM: 12/02/2018 4:39 PM CLINICAL HISTORY: Bilateral renal calculi TECHNIQUE: Single supine KUB image of the abdomen is obtained. COMPARISON: For 1219. FINDINGS: No dilated large or small bowel is seen. Mild degree colonic fecal stasis overlying the mid and superior poles of the kidneys. The lower poles demonstrate no evidence of radiopaque calculi. No calculi are seen along the courses of ureters or within the pelvis. Osseous structures appear grossl y intact. IMPRESSION: The mid and lower poles of the kidneys are obscured by overlying bowel gas. The lower denis e renal calculi are seen. No calculi in the pelvis.
== END | disposition home or self-care (01) ==
LOC: RADUSWWP 15:51
PROVIDERS: ATTEND Urology
DX: N13.39 Other hydronephrosis (principal); N20.0 Calculus of kidney
CPT/HCPCS: 74018; 76770

== ENCOUNTER → 2019-02-10 | Outpatient (CLI) | payer MEDICARE ==
--- NOTE | 2019-02-10 15:37 | XR ---
EXAMINATION TYPE: XR KUB DATE OF EXAM: 02/10/2019 2:49 PM CLINICAL HISTORY: Nephrolithiasis. TECHNIQUE: Single supine KUB image of the abdomen is obtained. COMPARISON: 12/02/2018. FINDINGS: 3 mm left lower pole renal calculus is present. Large and small bowel partially obscure the renal shadows. Mild degenerative changes at the lumbosacral junction. No calculi along the courses o f the ureters. No dilated large or small bowel. Visualized portions of the lung bases are well aerate d. IMPRESSION: Left lower pole 3 mm renal calculus. No additional renal calculi are seen.
== END ==
LOC: RADXRMAIN 14:20
PROVIDERS: ATTEND Urology
DX: N20.0 Calculus of kidney (principal)
CPT/HCPCS: 74018

== ENCOUNTER → 2019-02-17 | Outpatient (CLI) | payer MEDICARE ==
[2019-02-17 14:40] LABS: Basophils % (A) 0 %; Eosinophils # (A) 0.2 k/uL (0-0.7); Eosinophils % (A) 3 %; HCT 39.1 % (34.0-46.0); HGB 13.3 gm/dL (11.4-16.0); Lymphocytes # (A) 1.7 k/uL (1.0-4.8); Lymphocytes % (A) 25 %; MCH 30.8 pg (25.0-35.0); MCV 90.6 fL (80.0-100.0); Mean Platelet Volume 6.9; Monocytes # (A) 0.5 k/uL (0-1.0); Monocytes % (A) 8 %; Neutrophils # (A) 4.1 k/uL (1.3-7.7); Neutrophils % (A) 62 %; Platelet Count 254 k/uL (150-450); RBC 4.32 m/uL (3.80-5.40); RDW 13.2 % (11.5-15.5); WBC 6.6 k/uL (3.8-10.6)
[2019-02-17 14:45] LABS: Potassium 4.8 mmol/L (3.5-5.1)
== END | disposition home or self-care (01) ==
LOC: LABPAT 13:23
PROVIDERS: ATTEND Urology
DX: Z01.812 Encounter for preprocedural laboratory examination (principal); N20.0 Calculus of kidney
CPT/HCPCS: 36415; 80051; 82565; 84520; 85025

== ENCOUNTER 2019-02-20 09:59 | Day surgery (SDC) | payer MEDICARE ==
--- NOTE | 2019-02-16 21:57 | P.GSHP ---
History of Present Illness H&P Date: 02/16/19 Chief Complaint: Left renal calculus The patient is a 64-year-old white female who passed a kidney stone 5 years ago. She presented this spring with a several-day history of right flank pain. A CT scan showed mild right hydronephrosis due to a 3-4 mm right distal ureteral c alculus, as well as a small right lower pole renal calculus. The CT scan also showed severe left hydronephrosis with renal cortical thinning due to a 6.5 mm left distal ureteral calculus. Her serum calcium and parathyroid hormone levels were elevated, and it appeared that the kidney stones are due to hyperparathyroidism. She underwent bilateral ureteroscopy with Holmium laser lithotripsy. Unfortunately, it is unlikely she will regain much function of her left kidney. She underwent a parathyroidectomy in October 2018. She currently denies pain. Her most recent ultrasound shows persistent mild left hydronephrosis as well as a 6 mm left renal calculus. The calculus appears to measure 3 mm in size on a KUB x-ray, and is located within a left lower pole calyx. Alternative treatment options of been reviewed, and she elects to undergo ESWL. - Constitutional Constitutional: Denies chills, Denies fever - Gastrointestinal Gastrointestinal: Denies nausea, Denies vomiting - Genitourinary (Female) Genitourinary: Denies flank pain, Denies hematuria Past Medical History Past Medical History: Hyperlipidemia, Hypertension History of Any Multi-Drug Resistant Organisms: None Reported Past Surgical History: Section, Heart Catheterization, Hysterectomy Additional Past Surgical History / Comment(s): Right breast biopsy-benign Past Anesthesia/Blood Transfusion Reactions: No Reported Reaction Past Alcohol Use History: None Reported - Past Family History Father Family Medical History: Diabetes Mellitus Additional Family Medical History / Comment(s): benign brain tumor, at age 50 Mother Family Medical History: No Reported History Additional Family Medical History / Comment(s): Mother had CABG at age 63 CABG 5 vessel, developed CHF and Brother(s) Additional Family Medical History / Comment(s): Brother has history of four- vessel CABG at a young age. She has one sister with no major medical problems. Medications and Allergies Home Medications Medication Instructions Recorded Confirmed Type Atorvastatin Calcium [Lipitor] 80 mg PO HS 07/11/18 07/15/18 History Ciprofloxacin HCl [Cipro] 500 mg PO Q12HR #14 tablet 07/11/18 07/15/18 Rx Hydrocodone/Acetaminophen [[place] 1 each PO Q6HR PRN #20 tab 07/11/18 07/15/18 Rx 5-325] Losartan Potassium [Cozaar] 100 mg PO DAILY 07/11/18 07/15/18 History Ondansetron Odt [Zofran ODT] 4 mg PO Q8HR PRN #10 tab 07/11/18 07/15/18 Rx Tamsulosin [Flomax] 0.4 mg PO DAILY #14 cap 07/11/18 07/15/18 Rx amLODIPine BESYLATE [Norvasc] 10 mg PO 1500 07/11/18 07/15/18 History Aspirin [Adult Low Dose Aspirin EC] 81 mg PO DAILY 07/13/18 07/15/18 History Aspirin/Acetaminophen/Caffeine 1 each PO DIRECTED PRN 07/13/18 07/15/18 History [Excedrin Extra Strength Caplet] L.acidoph,Paracasei, B.lactis 1 each PO DAILY 07/13/18 07/15/18 History [Probiotic] Security-Widefield's Wort 300 mg PO DAILY 07/13/18 07/15/18 History Ubidecarenone [Co Q-10] 100 mg PO DAILY 07/13/18 07/15/18 History Allergies Allergy/AdvReac Type Severity Reaction Status Date / Time Sulfa (Sulfonamide Allergy Swelling Verified 07/15/18 12:33 Antibiotics) hydrochlorothiazide AdvReac Rapid Verified 07/15/18 12:33 Heart Rate Surgical - Exam - General well developed, well nourished, no distress - Neck no masses, trachea midline - Respiratory normal respiratory effort, clear to auscultation - Cardiovascular Rhythm: regular Abnormal Heart Sounds: no systolic murmur, no diastolic murmur, no rub, no S3 Gallop, no S4 Gallop, no click, no other - Abdomen Abdomen: soft, non tender, no guarding, no rigid, no rebound - Psychiatric oriented to time, oriented to person, oriented to place, speech is normal, memory intact Results - Imaging Abdominal x-ray: report reviewed, image reviewed Assessment and Plan (1) Calculus of kidney Status: Acute Code(s): N20.0 - CALCULUS OF KIDNEY SNOMED Code(s): 86244752 Plan: Left extracorporal shockwave lithotripsy (ESWL), to be performed by Dr. Mathew. The procedure has been reviewed in detail with the patient. She understands potential risks to include anesthesia, renal contusion, perinephric hematoma, incomplete fragmentation, and Steinstrasse. She understands that the procedure will need to be canceled if the calculus cannot be seen on fluoroscopy, in which case ureteroscopic removal of the calculus would need to be considered.
[2019-02-17 10:31] VITALS: BMI 28.3
[~2019-02-20 09:59] MED LIST changes: -GLYCOPYRROLATE 0.2 MG/ML 2 ML VIAL ONE; -HYDROmorphone 0.5 MG/0.5 ML SYRINGE IVP PRN; -IOPAMIDOL-300 50ML BTL MISCELLANE ONE; -LIDOCAINE 1% 20 ML VIAL (10MG/ML) FOR IV START INTRADERMA ONE; +LIDOCAINE 1% 20 ML VIAL (10MG/ML) FOR IV START INTRADERMA PRN; -LIDOCAINE 1% INJ 10MG/ML (20 ML MDV) ONE; -MIDAZOLAM (PF) 2 MG/2 ML VIAL IV PRN; -MIDAZOLAM 2 MG/2 ML VIAL ONE; -NEOSTIGMINE 1 MG/ML 10 ML VIAL ONE; -PROPOFOL 10 MG/ML 20 ML VIAL IV ONE; -ROCURONIUM BROMIDE 10 MG/ML 10 ML VIAL IV ONE; -ceFAZolin (PMX-bag) 1,000 MG in DEXTROSE/WATER 1 50ML.BAG IVPB ONE; -ePHEDrine SULFATE/0.9% NACL/PF 50 MG/5 ML SYRINGE IV ONE; +fentaNYL (PF) 50 MCG/ML 2 ML AMP IV PRN; -fentaNYL (PF) 50 MCG/ML 2 ML AMP ONE
--- NOTE | 2019-02-20 10:45 | XR ---
EXAMINATION TYPE: XR KUB DATE OF EXAM: 02/20/2019 CLINICAL DATA: 64-year-old female presurgical evaluation for left-sided kidney stone, [facility] COMPARISON: 02/10/2019 FINDINGS: Nonobstructive bowel gas pattern. Previously questioned 3 mm left-sided renal calculus not well demonstrated currently. IMPRESSION: The previously described 3 mm left renal calculus is not well seen currently.
[2019-02-20 11:03] VITALS: RESP 18; TEMP 97.7
--- NOTE | 2019-02-20 11:40 | P.OP ---
Date of Procedure: 02/20/19 Preoperative Diagnosis: Left renal calculus Postoperative Diagnosis: Left renal calculus Procedure(s) Performed: Extracorporal shockwave lithotripsy of left renal calculus Anesthesia: MAC Surgeon: Lonnie Mathew Estimated Blood Loss (ml): 0 Pathology: none sent Condition: stable Disposition: PACU Indications for Procedure: The patient is a 64-year-old female with a history of urolithiasis recently developed left flank pain which is felt to be related to a 3 mm calculus in the lower pole of the left kidney. Treatment options and risks were reviewed with Dr. Davis and the patient has elected to proceed with ESWL. Preop KUB did not clearly identify a calculus. Description of Procedure: The patient was taken the operating suite and placed in the supine position on the fluoroscopy table. The calculus in the lower pole of the left kidney could not be identified using fluoroscopy. In view of this it was elected to cancel the procedure. It is not clear whether the patient had previously passed calculus or whether due to the small size of the calculus it was just impossible to identify it. Previous KUBs from 11/2018 were reviewed and at that time it was not clear whether a calculus was present.
[2019-02-20 11:42] VITALS: BP 145/78; PULSE 56
== END 2019-02-20 12:00 | disposition home or self-care (01) ==
LOC: ORWHC2ENDO 09:59
PROVIDERS: ATTEND Urology
DX: N20.0 Calculus of kidney (principal); Z53.8 Procedure and treatment not carried out for other reasons; E78.5 Hyperlipidemia, unspecified; I10 Essential (primary) hypertension; F17.200 Nicotine dependence, unspecified, uncomplicated; Z88.2 Allergy status to sulfonamides; Z88.8 Allergy status to other drugs, medicaments and biological substances; Z88.5 Allergy status to narcotic agent; Z87.442 Personal history of urinary calculi; Z90.89 Acquired absence of other organs; Z98.890 Other specified postprocedural states; Z90.710 Acquired absence of both cervix and uterus; Z79.899 Other long term (current) drug therapy; Z79.82 Long term (current) use of aspirin; Z83.3 Family history of diabetes mellitus; Z82.0 Family history of epilepsy and other diseases of the nervous system; Z82.49 Family history of ischemic heart disease and other diseases of the circulatory system
CPT/HCPCS: 74018; J1100; J2405

== ENCOUNTER → 2019-03-08 | Outpatient (CLI) | payer MEDICARE ==
--- NOTE | 2019-03-08 13:40 | CT ---
EXAMINATION TYPE: CT abdomen pelvis wo con DATE OF EXAM: 03/08/2019 COMPARISON: July 11, 2018 HISTORY: hydronephrosis CT DLP: 751 mGycm Examination of the solid and hollow viscera is limited given the lack of contrast. FINDINGS: LUNG BASES: No evidence for nodule. No evidence for infiltrate. LIVER/GB: Small gallstone noted without wall thickening seen. No space-occupying hepatic lesion. PANCREAS: No pancreatic mass identified. No inflammatory process seen. SPLEEN: No evidence for splenomegaly. No intrasplenic lesions seen. ADRENALS: No adrenal nodules identified. No evidence for thickening. KIDNEYS: Atrophic changes left kidney. Nonobstructing calculus lower pole left kidney measuring 3.3 m m. Two 3 mm calculi upper pole left kidney without obstructive change. No right-sided nephrolithiasis . No hydronephrosis. Renal cystic change left kidney. 1 cm cyst midpole left kidney. BOWEL: Appendix has a normal appearance. No evidence of bowel obstruction. No inflammatory process. Lymph nodes: No evidence for adenopathy greater than 1 cm. Abdominal aorta: Atheromatous changes seen. No evidence for aneurysm. Genital organs: Hysterectomy changes noted. Other: No significant abnormality. IMPRESSION: 1. Atrophic changes of the left kidney with several nonobstructing renal calculi seen. Renal cystic c hange left kidney as well.
== END | disposition home or self-care (01) ==
LOC: RADCTMAIN 13:13
PROVIDERS: ATTEND Urology
DX: N20.0 Calculus of kidney (principal); N26.1 Atrophy of kidney (terminal); N28.1 Cyst of kidney, acquired; N13.30 Unspecified hydronephrosis; Z88.2 Allergy status to sulfonamides; Z88.8 Allergy status to other drugs, medicaments and biological substances
CPT/HCPCS: 74176

== ENCOUNTER → 2019-03-23 | Outpatient (CLI) | payer MEDICARE ==
[2019-03-23 12:34] LABS: Calcium 9.2 mg/dL (8.4-10.2); Potassium 4.4 mmol/L (3.5-5.1)
[2019-03-23 12:56] LABS: Basophils # (A) 0.1 k/uL (0-0.2); Basophils % (A) 1 %; Eosinophils # (A) 0.2 k/uL (0-0.7); Eosinophils % (A) 3 %; HCT 42.6 % (34.0-46.0); HGB 13.7 gm/dL (11.4-16.0); Lymphocytes # (A) 1.6 k/uL (1.0-4.8); Lymphocytes % (A) 24 %; MCH 29.8 pg (25.0-35.0); MCHC 32.2 g/dL (31.0-37.0); MCV 92.5 fL (80.0-100.0); Mean Platelet Volume 8.6; Monocytes # (A) 0.6 k/uL (0-1.0); Monocytes % (A) 9 %; Neutrophils # (A) 4.2 k/uL (1.3-7.7); Neutrophils % (A) 62 %; Platelet Count 270 k/uL (150-450); RBC 4.61 m/uL (3.80-5.40); WBC 6.8 k/uL (3.8-10.6)
== END | disposition home or self-care (01) ==
LOC: LABPAT 11:28
PROVIDERS: ATTEND Urology
DX: Z01.812 Encounter for preprocedural laboratory examination (principal); N20.0 Calculus of kidney; R31.29 Other microscopic hematuria
CPT/HCPCS: 36415; 80048; 85025; 87086

== ENCOUNTER 2019-03-30 06:47 | Day surgery (SDC) | payer MEDICARE ==
[2019-03-24 11:52] VITALS: BMI 28.1
--- NOTE | 2019-03-28 08:35 | P.GSHP ---
History of Present Illness H&P Date: 03/28/19 Chief Complaint: Renal calculi The patient is a 64-year-old white female who passed a kidney stone 5 years ago. She presented this spring with a several-day history of right flank pain. A CT scan showed mild right hydronephrosis due to a 3-4 mm right distal ureteral calculus, as well as a small right lower pole renal calculus. The CT scan also showed severe left hydronephrosis with renal cortical thinning due to a 6.5 mm left distal ureteral calculus. Her serum calcium and parathyroid hormone levels were elevated, and it appeared that the kidney stones are due to hyperparathyroidism. She underwent bilateral ureteroscopy with Holmium laser lithotripsy. Unfortunately, it is unlikely she will regain much function of her left kidney. She underwent a parathyroidectomy in October 2018. She currently denies pain. Her most recent ultrasound shows persistent mild left hydronephrosis as well as a 6 mm left renal calculus. The calculus appeared to measure 3 mm in size on a KUB x-ray, and was located within a left lower pole calyx. Alternative treatment options were reviewed, and she elected to undergo ESWL. However, the procedure could not be performed because the calculus could not be seen on fluoroscopy. A computed tomography scan was obtained, revealing a 3 mm left lower pole renal calculus and two 3 mm left upper pole renal calculi. She now comes for ureteroscopic removal of these calculi. - Constitutional Constitutional: Denies chills, Denies fever - Gastrointestinal Gastrointestinal: Denies nausea, Denies vomiting - Genitourinary (Female) Genitourinary: Denies hematuria Past Medical History Past Medical History: Hyperlipidemia, Hypertension Additional Past Medical History / Comment(s): kidney stones History of Any Multi-Drug Resistant Organisms: None Reported Past Surgical History: Section, Heart Catheterization, Hysterectomy Additional Past Surgical History / Comment(s): Right breast biopsy-benign, thyroid surgery, kidney surgery for kidney stones,surgery on parathyroid removed gland Past Anesthesia/Blood Transfusion Reactions: No Reported Reaction Smoking Status: Never smoker - Past Family History Mother Family Medical History: No Reported History Additional Family Medical History / Comment(s): Mother had CABG at age 63 CABG 5 vessel, developed CHF and Brother(s) Additional Family Medical History / Comment(s): Brother has history of four- vessel CABG at a young age. She has one sister with no major medical problems. Medications and Allergies Home Medications Medication Instructions Recorded Confirmed Type Atorvastatin Calcium [Lipitor] 80 mg PO HS 07/11/18 03/24/19 History Losartan Potassium [Cozaar] 100 mg PO DAILY 07/11/18 03/24/19 History amLODIPine BESYLATE [Norvasc] 5 mg PO Q48H 07/11/18 03/24/19 History Aspirin [Adult Low Dose Aspirin EC] 81 mg PO DAILY 07/13/18 03/24/19 History L.acidoph,Paracasei, B.lactis 1 each PO DAILY 07/13/18 03/24/19 History [Probiotic] Ubidecarenone [Co Q-10] 100 mg PO DAILY 07/13/18 03/24/19 History Alendronate Sodium [Fosamax] 70 mg PO MO 03/24/19 03/24/19 History Allergies Allergy/AdvReac Type Severity Reaction Status Date / Time hydrocodone [From [place]] Allergy Nausea & Verified 03/24/19 11:40 Vomiting Sulfa (Sulfonamide Allergy Swelling Verified 03/24/19 11:40 Antibiotics) hydrochlorothiazide AdvReac Rapid Verified 03/24/19 11:40 Heart Rate Surgical - Exam - General well developed, well nourished, no distress - Neck no masses, trachea midline - Respiratory normal respiratory effort, clear to auscultation - Cardiovascular Rhythm: regular Abnormal Heart Sounds: no systolic murmur, no diastolic murmur, no rub, no S3 Gallop, no S4 Gallop, no click, no other - Abdomen Abdomen: soft, non tender, no guarding, no rigid, no rebound - Psychiatric oriented to time, oriented to person, oriented to place, speech is normal, memory intact Results - Imaging CT scan - abdomen: report reviewed, image reviewed Assessment and Plan Plan: Cystoscopy, left ureteroscopy with Holmium laser lithotripsy and possible stone basketing, left ureteral stent insertion. The procedure has been reviewed in detail with the patient. She is aware of potential risks, which include a nesthesia, bleeding, infection, and ureteral injury.
[~2019-03-30 06:47] MED LIST changes: -LIDOCAINE 1% 20 ML VIAL (10MG/ML) FOR IV START INTRADERMA PRN; +MIDAZOLAM 2 MG/2 ML VIAL IV PRN
[2019-03-30] MEDS ORDERED: MIDAZOLAM 2 MG/2 ML VIAL ONE (08:04)
[2019-03-30] MEDS ORDERED: fentaNYL (PF) 50 MCG/ML 2 ML AMP ONE (08:04)
[2019-03-30] MEDS ORDERED: PROPOFOL 10 MG/ML 20 ML VIAL IV ONE (08:04)
[2019-03-30] MEDS ORDERED: LIDOCAINE 1% INJ 10MG/ML (20 ML MDV) ONE (08:04)
[2019-03-30] MEDS ORDERED: ePHEDrine SULFATE/0.9% NACL/PF 50 MG/5 ML SYRINGE IV ONE (08:04)
[2019-03-30 09:49] VITALS: TEMP 96.8
[2019-03-30 10:12] VITALS: PULSE 72; RESP 16
--- NOTE | 2019-03-30 10:21 | P.OP ---
Date of Procedure: 03/30/19 Preoperative Diagnosis: Left renal calculi Postoperative Diagnosis: Same Procedure(s) Performed: Cystoscopy, left ureteroscopy with Holmium laser lithotripsy and stone basketing, left ureteral stent insertion Anesthesia: DEVONTE Surgeon: Ryan Davis Estimated Blood Loss (ml): 0 IV fluids (ml): 600 Pathology: none sent Condition: stable Disposition: PACU Indications for Procedure: The patient is a 64-year-old white female who passed a kidney stone 5 years ago. She presented this spring with a several-day history of right flank pain. A CT scan showed mild right hydronephrosis due to a 3-4 mm right distal ureteral calculus, as well as a small right lower pole renal calculus. The CT scan also showed severe left hydronephrosis with renal cortical thinning due to a 6.5 mm left distal ureteral calculus. Her serum calcium and parathyroid hormone levels were elevated, and it appeared that the kidney stones are due to hyperparathyroidism. She underwent bilateral ureteroscopy with Holmium laser lithotripsy. Unfortunately, it is unlikely she will regain much function of her left kidney. She underwent a parathyroidectomy in October 2018. She currently denies pain. Her most recent ultrasound shows persistent mild left hydronephrosis as well as a 6 mm left renal calculus. The calculus appeared to measure 3 mm in size on a KUB x-ray, and was located within a left lower pole calyx. Alternative treatment options were reviewed, and she elected to undergo ESWL. However, the procedure could not be performed because the calculus could not be seen on fluoroscopy. A computed tomography scan was obtained, revealing a 3 mm left lower pole renal calculus and two 3 mm left upper pole renal calculi. She now comes for ureteroscopic removal of these calculi. Operative Findings: 3 mm left lower pole renal calculus. Multiple tiny calculi consistent with active stone disease. Description of Procedure: The patient was taken to the operating room and placed in the dorsolithotomy position, with legs supported in Talha stirrups. The external genitalia was prepped and draped sterilely. The 30 lens was used to introduce the 19-Mosotho Stortz cystoscopic sheath through the urethra and into the bladder under direct vision. The bladder was examined in its entirety. Both ureteral orifices were normal anatomic location and configuration, and clear urine effluxed from both. No tumors were seen. Multiple tiny calculi were seen, consistent with active stone disease. A 0.038 inch Glidewire was passed through the cystoscope. The left ureteral orifice was cannulated, and the Glidewire was advanced up to the left renal pelvis. The cystoscope was removed, and an 11/13-Mosotho ureteral access catheter was passed over the wire, up to the proximal ureter. The Olympus mini flexible ureteroscope was passed through the ureteral access catheter sheath and advanced under direct vision up to the left renal pelvis. Each calyx was examined. Multiple tiny calculi were seen within 3 calyces, one in the upper pole and 2 in the lower pole. In one of the lower pole calyces was a 3 mm calculus. The 200 micron Holmium laser probe was passed through the ureteroscope, and lithotripsy was performed. Using a 1.9-Mosotho nitinol basket, the calculus fragments were removed. Next, using a syringe, all 3 calyces containing tiny calculi were irrigated with normal saline and aspirated, allowing removal of the majority of these calculi. They were too small for stone basketing to be a consideration. There was no evidence of renal or ureteral trauma. The ureteroscope was removed. The Glidewire was passed through the ureteral access catheter sheath, which was then removed. The Glidewire was backloaded into the cystoscope, which was passed into the bladder. A 4.5-Mosotho, 24 cm double-J ureteral stent was placed over the wire. Proper stent positioning was verified fluoroscopically and endoscopically. The bladder was emptied and the cystoscope removed. The patient tolerated the procedure well and was taken to the recovery room in stable condition. [employer] ROCKS Report: Procedure Acuity: Elective Stone Size and Location: 3 mm, left lower pole Ureteral Dilation: No Ureteral Access Sheath Used: Yes Stone Sent for Analysis: No All Stones/Fragments Were Removed with a Basket: No Complications: No Preoperative Antibiotics Given: Yes Stent Placed: Yes If Stent Placed, Was String Left Attached: No If Stent Placed, When is it to be Removed: 1 week Discharge Medications: None
--- NOTE | 2019-03-30 10:32 | FL ---
Fluoroscopy HISTORY: Cystoscopy with lithotripsy 7 seconds fluoroscopy time supplied to the referring clinician. 1 intraoperative C-arm images docume nt the procedure. See dictated report from urology.
[2019-03-30 10:35] VITALS: BP 160/76
== END 2019-03-30 10:48 | disposition home or self-care (01) ==
LOC: OR 06:47
PROVIDERS: ATTEND Urology
DX: N13.2 Hydronephrosis with renal and ureteral calculous obstruction (principal); E21.3 Hyperparathyroidism, unspecified; E89.0 Postprocedural hypothyroidism; I10 Essential (primary) hypertension; E78.5 Hyperlipidemia, unspecified; Z98.891 History of uterine scar from previous surgery; Z98.890 Other specified postprocedural states; Z90.710 Acquired absence of both cervix and uterus; Z82.49 Family history of ischemic heart disease and other diseases of the circulatory system; Z79.83 Long term (current) use of bisphosphonates; Z79.82 Long term (current) use of aspirin; Z79.899 Other long term (current) drug therapy; Z88.5 Allergy status to narcotic agent; Z88.2 Allergy status to sulfonamides; Z88.8 Allergy status to other drugs, medicaments and biological substances
CPT/HCPCS: 52356; C2625; C1769; J2250; J1100; J2405; J0690; J2001; J3010; J2704

== ENCOUNTER → 2019-12-27 | Outpatient (CLI) | payer MEDICARE ==
--- NOTE | 2019-12-27 15:16 | XR ---
EXAMINATION TYPE: XR KUB DATE OF EXAM: 12/27/2019 HISTORY: Pain Comparison: 02/20/2019Single KUB is submitted for interpretation. Findings: Right renal calculi: None Visualized. Right ureteral calculi: None Visualized. Left renal calculi: None Visualized. Left ureteral calculi: None Visualized. Pelvic calcifications: Yes Bowel gas pattern is unremarkable. No free air. No mass effects. IMPRESSION: 1. No visible calculi identified at this time.
== END | disposition home or self-care (01) ==
LOC: RADXRMAIN 14:41
PROVIDERS: ATTEND Urology
DX: N20.0 Calculus of kidney (principal)
CPT/HCPCS: 74018; 82565; 84520

== ENCOUNTER → 2020-01-12 | Outpatient (CLI) | payer MEDICARE ==
--- NOTE | 2020-01-12 18:12 | CT ---
EXAMINATION TYPE: CT abdomen pelvis wo con DATE OF EXAM: 01/12/2020 COMPARISON: 03/08/2019 HISTORY: Kidney stone CT DLP: 325.3 mGycm Automated exposure control for dose reduction was used. TECHNIQUE: Helical acquisition of images was performed from the lung bases through the pelvis. FINDINGS: LUNG BASES: Stable cholelithiasis. The heart is enlarged. Tiny pericardial effusion noted. LIVER/GB: No significant abnormality is appreciated. PANCREAS: No significant abnormality is seen. SPLEEN: Tiny accessory spleen noted ADRENALS: No significant abnormality is seen. KIDNEYS: Atrophic changes involving the left kidney are noted. Small subcentimeter hypodensity extend ing off the lateral margin of the left kidney is indeterminate by noncontrast technique does measure less than 15 Hounsfield units suggestive of simple cyst. Suspect an additional parapelvic left renal cyst stable in morphology and size from prior exam involving the left kidney measuring 4 Hounsfield u nits. There is no hydronephrosis or nephrolithiasis ADENOPATHY: None visualized. OSSEOUS STRUCTURES: Hypertrophic and degenerative change of the spine with slight curvature. Arthrop athy of the hips. BOWEL: Diverticulosis of the colon with no CT evidence of diverticulitis. OTHER: Atherosclerotic change of the aorta with no evidence of aneurysm. Tiny fat-containing periumbi lical hernia. IMPRESSION: 1. Cholelithiasis. 2. Chronic medical renal disease of the left kidney. Hypodensities involving the kidneys are too smal l to characterize but likely related to cysts. 3. No hydronephrosis or nephrolithiasis.
== END | disposition home or self-care (01) ==
LOC: RADCTMAIN 17:44
PROVIDERS: ATTEND Urology
DX: K80.20 Calculus of gallbladder without cholecystitis without obstruction (principal); N18.9 Chronic kidney disease, unspecified; N28.89 Other specified disorders of kidney and ureter; Z88.2 Allergy status to sulfonamides; Z88.8 Allergy status to other drugs, medicaments and biological substances; Z88.5 Allergy status to narcotic agent
CPT/HCPCS: 74176

== ENCOUNTER → 2020-08-30 | Outpatient (CLI) | payer MEDICARE ==
--- NOTE | 2020-08-30 14:12 | BD ---
EXAMINATION TYPE: Axial Bone Density DATE OF EXAM: 08/30/2020 COMPARISON: 08/18/2018 CLINICAL HISTORY: Postmenopausal female Height: 60.5 IN Weight: 145 LBS FRAX RISK QUESTIONS: Secondary Osteoporosis: 3. Menopause before 45: TOTAL HYST AGE 40 RISK FACTORS HISTORY OF: Family History of Osteoporosis: GRANDMOTHER Active: YES Diet low in dairy products/other sources of calcium: YES Postmenopausal woman: TOTAL HYST AGE 40 Take estrogen and/or progesterone medications: NOT NOW How long: TOOK PREMARIN FROM AGE [age] Hyperparathyroidism: YES MEDICATIONS: Osteoporosis Medications: NOT NOW Which medication: ALENDRONATE SODIUM How Long: TOOK FOR 1 1/2 YEARS Additional Medications: CALCIUM, HYDRALAZINE, LOW DOSE ASPIRIN, COQ10, LOSARTAN, ATORVASTATIN, PROBIO TIC, EXAM MEASUREMENTS: Bone mineral densitometry was performed using the [employer] System. Bone mineral density as measured about the Lumbar spine is: ----- L1-L4(G/cm2): 1.002 T Score Values are as follows: ----- L2: -1.5 ----- L3: -1.5 ----- L4: -1.7 ----- L1-L4: -1.5 Bone mineral density has: Increased -13.1% since study of: 08/18/2018 Bone mineral density about the R hip (g/cm2): 0.674 Bone mineral density about the L hip (g/cm2): 0.736 T Score values are as follows: -----R Neck: -2.6 -----L Neck: -2.2 -----R Total: -1.5 -----L Total: -1.6 Bone mineral density has: Increased 8.0% since study of: 08/18/2018 IMPRESSION: Osteoporosis (T Score less than -2.5) at the femoral neck level in the right hip. There remains increased fracture risk and therapy is usually indicated based on age. Re-Screen 1-2 years. NOTE: T-SCORE=SD OF THE YOUNG ADULT MEAN.
--- NOTE | 2020-09-03 11:15 | MM ---
Reason for exam: screening (asymptomatic). Last mammogram was performed 2 years ago. History: Patient is postmenopausal and had first child at age 29. Benign stereotactic core biopsy of the right breast, January 14, 2001. Benign stereotactic core biopsy of the right breast, November 22, 2000. 2 core biopsies of the right breast. Physical Findings: A clinical breast exam by your physician is recommended on an annual basis and results should be correlated with mammographic findings. MG 3D Screening Mammo W/Cad Bilateral CC and MLO view(s) were taken. Prior study comparison: August 18, 2018, bilateral MG 3d screening mammo w/cad. April 20, 2016, bilateral MG 3d screening mammo w/cad. The breast tissue is heterogeneously dense. This may lower the sensitivity of mammography. Finding: There are grouped/clustered calcifications in the upper outer quadrant of the left breast. Previous mammotome biopsy in the right breast. ASSESSMENT: Incomplete: need additional imaging evaluation, BI-RAD 0 RECOMMENDATION: Special view mammogram of the left breast. [facility] will attempt to contact patient to return for supplemental views.
== END | disposition home or self-care (01) ==
LOC: RADMAMWWP 10:22
PROVIDERS: ATTEND Internal Medicine
DX: Z12.31 Encounter for screening mammogram for malignant neoplasm of breast (principal); M81.0 Age-related osteoporosis without current pathological fracture; Z78.0 Asymptomatic menopausal state; Z82.62 Family history of osteoporosis
CPT/HCPCS: 77063; 77067; 77080

== ENCOUNTER → 2020-09-10 | Outpatient (CLI) | payer MEDICARE ==
--- NOTE | 2020-09-10 11:59 | MM ---
Reason for exam: additional evaluation requested from abnormal screening. Last mammogram was performed less than 1 month ago. History: Patient is postmenopausal and had first child at age 29. Benign stereotactic core biopsy of the right breast, January 14, 2001. Benign stereotactic core biopsy of the right breast, November 22, 2000. 2 core biopsies of the right breast. Took hormonal contraceptives for 8 years beginning at age 17. Physical Findings: Nurse did not find any significant physical abnormalities on exam. MG 3D Work Up W/Cad LT Spot compression CC, spot compression MLO, and ML view(s) were taken of the left breast. Prior study comparison: August 30, 2020, bilateral MG 3d screening mammo w/cad. August 18, 2018, bilateral MG 3d screening mammo w/cad. Finding: There are diffuse/scattered, regional, fine calcifications in the upper outer quadrant, anterior position of the left breast. A group is stable from 2016 more calcifications diffusely. No suspicious group. New finding since August 30, 2020 and August 18, 2018. These results were verbally communicated with the patient and result sheet given to the patient on 09/10/20. ASSESSMENT: Probably benign, BI-RAD 3 RECOMMENDATION: Follow-up diagnostic mammogram of the left breast in 6 months. (+ magnification)
== END | disposition home or self-care (01) ==
LOC: RADMAMWWP 10:44
PROVIDERS: ATTEND Internal Medicine
DX: R92.1 Mammographic calcification found on diagnostic imaging of breast (principal); Z80.3 Family history of malignant neoplasm of breast
CPT/HCPCS: 77065; G0279; 77061

== ENCOUNTER → 2021-05-02 | Outpatient (CLI) | payer MEDICARE ==
--- NOTE | 2021-05-02 09:06 | MM ---
Reason for exam: follow-up at short interval from prior study. Last mammogram was performed 8 months ago. History: Patient is postmenopausal and had first child at age 29. Benign stereotactic core biopsy of the right breast, January 14, 2001. Benign stereotactic core biopsy of the right breast, November 22, 2000. 2 core biopsies of the right breast. Took hormonal contraceptives for 8 years beginning at age 17. Took progesterone beginning at age 43. Took antineoplastic beginning at age 43. Physical Findings: Nurse did not find any significant physical abnormalities on exam. MG 3D Diag Mammo W/Cad LT CC, MLO, CC with magnification, and ML with magnification view(s) were taken of the left breast. Prior study comparison: September 10, 2020, left breast MG 3d work up w/cad LT. August 30, 2020, bilateral MG 3d screening mammo w/cad. The breast tissue is heterogeneously dense. This may lower the sensitivity of mammography. Finding: There are stable, course, diffuse/scattered calcifications in the upper outer quadrant of the left breast. No significant changes in finding since September 10, 2020 and August 30, 2020. These results were verbally communicated with the patient and result sheet given to the patient on 05/02/21. ASSESSMENT: Probably benign, BI-RAD 3 RECOMMENDATION: Follow-up diagnostic mammogram of both breasts in 4 months. Back on schedule for August 2021.
== END | disposition home or self-care (01) ==
LOC: RADMAMWWP 07:41
PROVIDERS: ATTEND Internal Medicine
DX: R92.8 Other abnormal and inconclusive findings on diagnostic imaging of breast (principal)
CPT/HCPCS: 77065; G0279; 77061

== ENCOUNTER → 2021-05-02 | Outpatient (CLI) | payer MEDICARE ==
[~2021-05-02] MED LIST changes: +DENOSUMAB 60 MG/ML 1 ML SYRINGE SQ NR; -DEXAMETHASONE SOD PHOSPHATE 10 MG/ML 1 ML VIAL IV ONE; -LACTATED RINGERS 1,000 ML IV SCH; -MIDAZOLAM 2 MG/2 ML VIAL IV PRN; -ONDANSETRON 4 MG/2 ML VIAL IVP ONE; +SODIUM CHLORIDE 0.9% 500 ML 500 ML in EMPTY BAG 1 BAG IV PRN; +ZOLEDRONIC ACID 5 MG in SODIUM CHLORIDE 0.9% 100 ML IV NR; -fentaNYL (PF) 50 MCG/ML 2 ML AMP IV PRN
[2021-05-02 08:59] VITALS: RESP 16
[2021-05-02 09:08] VITALS: BP 144/79; PULSE 61; TEMP 98.4
== END | disposition home or self-care (01) ==
LOC: PROCWHC3 08:36
PROVIDERS: ATTEND Internal Medicine
DX: M81.0 Age-related osteoporosis without current pathological fracture (principal)
CPT/HCPCS: 96365; J3489

== ENCOUNTER → 2021-09-02 | Outpatient (CLI) | payer MEDICARE ==
--- NOTE | 2021-09-02 15:33 | MM ---
Reason for Exam: Follow-up at short interval from prior study. Last screening mammogram was performed 12 month(s) ago. Patient History: Menarche at age 11. First Full-Term at age 29. Late child-bearing (after 28). Left ovary removed at age 43. Right ovary removed at age 43. Hysterectomy at age 43. Postmenopausal. Progesterone, from age 43 until age 44. Hormonal Contraceptives for 8 years from age 17 until age 26. Core Biopsy on the Right side. Core Biopsy on the Right side. 01/14/2001, Benign Stereotactic Core Biopsy on the right side. 11/22/2000, Benign Stereotactic Core Biopsy on the right side. Risk Values: Nicci 5 year model risk: 3.5%. NCI Lifetime model risk: 11.2%. Film Views: 3D and 2D Synthesized Bilateral CC views were taken. 3D and 2D Synthesized Bilateral MLO views were taken. Prior Study Comparison: 09/23/2012 Bilateral Screening Mammogram, [facility]. 04/20/2016 Bilateral Screening Mammogram, [facility]. 08/18/2018 Bilateral Screening Mammogram, [facility]. 08/30/2020 Bilateral Screening Mammogram, [facility] 09/10/2020 Left Diagnostic Mammogram, [facility]. 05/02/2021 Left Diagnostic Mammogram, [facility]. Tissue Density: The breast tissue is heterogeneously dense. This may lower the sensitivity of mammography. Findings: Analyzed By CAD. Microclip right breast from previous biopsy. Chronic nodularity posterior medial right breast. Diffuse punctate microcalcifications on the right. Unchanged regional microcalcifications left upper-outer quadrant. Underlying chronic nodularity noted, better seen on 3 images. Possible subtle distortion 12-1 o'clock left breast more prominent compared to 05/02/2021 but seems to have been present on 08/18/2018. This may reflect previous excisional scar. Short interval follow-up recommended. Overall Assessment: Probably benign, BI-RAD 3 Management: Diagnostic Mammogram of the left breast in 6 months. 1. Six-month follow-up diagnostic left breast mammogram for the 12-1 o'clock suspected excisional scar. 2. A clinical breast exam by your physician is recommended on an annual basis and results should be correlated with mammographic findings. This exam should not preclude additional follow-up of suspicious palpable abnormalities. 3. Patient should continue monthly self breast exams. Results were given to the patient verbally at the time of exam. Electronically signed and approved by: Marietta Juarez M.D. Radiologist
== END | disposition home or self-care (01) ==
LOC: RADMAMWWP 14:26
PROVIDERS: ATTEND Internal Medicine
DX: R92.8 Other abnormal and inconclusive findings on diagnostic imaging of breast (principal)
CPT/HCPCS: 77066; G0279; 77062

== ENCOUNTER 2021-09-09 08:41 | Day surgery (SDC) | payer MEDICARE ==
[2021-09-05 15:26] VITALS: BMI 27.6
[~2021-09-09 08:41] MED LIST changes: -DENOSUMAB 60 MG/ML 1 ML SYRINGE SQ NR; +LACTATED RINGERS 1,000 ML IV SCH; +LIDOCAINE 1% (10MG/ML) FOR IV START INTRADERMA PRN; -SODIUM CHLORIDE 0.9% 500 ML 500 ML in EMPTY BAG 1 BAG IV PRN; -ZOLEDRONIC ACID 5 MG in SODIUM CHLORIDE 0.9% 100 ML IV NR
[2021-09-09 09:56] VITALS: TEMP 97
[2021-09-09] MEDS ORDERED: PROPOFOL 10 MG/ML 20 ML VIAL IV ONE (10:38)
--- NOTE | 2021-09-09 10:54 | P.PCN ---
Date of Procedure: 09/09/21 Procedure(s) Performed: BRIEF HISTORY: Patient is a 66-year-old pleasant white female scheduled for an elective colonoscopy as a part of evaluation of prior history of colon polyps. PROCEDURE PERFORMED: Colonoscopywith snare polypectomy. PREOPERATIVE DIAGNOSIS: History of colon polyps. IV sedation per Anesthesia. PROCEDURE: After informed consent was obtained, the patient, was brought into the endoscopy unit. IV sedation was administered by Anesthesia under continuous monitoring. Digital rectal examination was normal. Initially the Olympus CF-160 flexible video colonoscope was then inserted in the rectum, gradually advanced into the cecum without any difficulty. Careful examination was performed as the scope was gradually being withdrawn. Ileocecal valve and the appendiceal orifice were visualized and appeared normal. Prep was excellent. Mucosa of the cecum,appeared normal. In the ascending colon there was a 7 mm sessile polyp removed by snare polypectomy. Rest of the ascending colon, transverse colon, descending colon, sigmoid colon, and rectum appeared normal.at her sigmoid dive rticulosis. Retroflexion was performed in the rectum and no lesions were seen. The patient tolerated the procedure well. IMPRESSION: 7 mm sessile ascending colon polyp status post snare polypectomy Scattered sigmoid diverticulosis RECOMMENDATIONS: Findings of this examination were discussed with the patient as well as a family.she was advised to follow with the biopsy results. If the biopsy reveals adenoma she can have a repeat colonoscopy in 5 years.
[2021-09-09 11:11] VITALS: BP 119/63; PULSE 76; RESP 16
== END 2021-09-09 11:47 | disposition home or self-care (01) ==
LOC: ORWHC2ENDO 08:41
PROVIDERS: ATTEND Internal Medicine Gastroenterology
DX: D12.2 Benign neoplasm of ascending colon (principal); Z12.11 Encounter for screening for malignant neoplasm of colon; K57.30 Diverticulosis of large intestine without perforation or abscess without bleeding; I10 Essential (primary) hypertension; E78.5 Hyperlipidemia, unspecified; Z86.010 Personal history of colon polyps; Z79.82 Long term (current) use of aspirin; Z79.899 Other long term (current) drug therapy; Z88.5 Allergy status to narcotic agent; Z88.2 Allergy status to sulfonamides
CPT/HCPCS: 88305; 45385; J2704

== ENCOUNTER → 2022-05-05 | Outpatient (CLI) | payer MEDICARE ==
[~2022-05-05] MED LIST changes: -LACTATED RINGERS 1,000 ML IV SCH; -LIDOCAINE 1% (10MG/ML) FOR IV START INTRADERMA PRN; +SODIUM CHLORIDE 0.9% 500 ML 500 ML in EMPTY BAG 1 BAG IV PRN; +ZOLEDRONIC ACID 5 MG in SODIUM CHLORIDE 0.9% 100 ML IV NR
[2022-05-05 13:38] VITALS: BP 128/70; PULSE 51; RESP 16; TEMP 97.8
== END ==
LOC: PROCWHC3 12:52
PROVIDERS: ATTEND Internal Medicine
DX: M81.0 Age-related osteoporosis without current pathological fracture (principal); Z88.5 Allergy status to narcotic agent; Z88.2 Allergy status to sulfonamides; Z88.8 Allergy status to other drugs, medicaments and biological substances
CPT/HCPCS: 96365; J3489

== ENCOUNTER → 2022-09-03 | Outpatient (CLI) | payer MEDICARE ==
--- NOTE | 2022-09-03 14:19 | MM ---
Reason for Exam: Hx of benign breast biopsy. Last mammogram was performed 1 year(s) and 1 month(s) ago. Patient History: Menarche at age 11. First Full-Term at age 29. Late child-bearing (after 28). Left ovary removed at age 43. Right ovary removed at age 43. Hysterectomy at age 43. Postmenopausal. Patient has history of breast feeding. Progesterone, from age 43 until age 44. Hormonal Contraceptives for 8 years from age 17 until age 26. Core Biopsy on the Right side. Core Biopsy on the Right side. 01/14/2001, Benign Stereotactic Core Biopsy on the right side. 11/22/2000, Benign Stereotactic Core Biopsy on the right side. Risk Values: Nicci 5 year model risk: 3.6%. NCI Lifetime model risk: 10.7%. Prior Study Comparison: 04/20/2016 Bilateral Screening Mammogram, [facility]. 08/18/2018 Bilateral Screening Mammogram, [facility]. 08/30/2020 Bilateral Screening Mammogram, [facility]. 09/10/2020 Left Diagnostic Mammogram, [facility]. 05/02/2021 Left Diagnostic Mammogram, [facility]. 09/02/2021 Bilateral MG 3D diag mammo w/cad [facility], [facility]. Tissue Density: The breast tissue is heterogeneously dense. This may lower the sensitivity of mammography. Findings: Analyzed By CAD. Stable fibroglandular appearance bilaterally. No new suspicious masses, calcifications or distortions. Overall Assessment: Benign, BI-RAD 2 Management: Screening Mammogram of both breasts in 1 year. Results were given to the patient verbally at the time of exam. Patient should continue monthly self-breast exams. A clinical breast exam by your physician is recommended on an annual basis. This exam should not preclude additional follow-up of suspicious palpable abnormalities. Note on Nicci scores and lifetime risk: 1. A Nicci score greater than 3% is considered moderate risk. If this is the case, consider specialist referral to assess eligibility for a risk reducing agent. 2. If overall lifetime risk for the development of breast cancer is 20% or higher, the patient may qualify for future screening with alternating mammogram and breast MRI. Electronically signed and approved by: Aaron Forrester DO
== END | disposition home or self-care (01) ==
LOC: RADMAMWWP 13:18
PROVIDERS: ATTEND Internal Medicine
DX: R92.8 Other abnormal and inconclusive findings on diagnostic imaging of breast (principal); Z78.0 Asymptomatic menopausal state
CPT/HCPCS: 77066; G0279; 77062

== ENCOUNTER → 2022-09-07 | Outpatient (CLI) | payer MEDICARE ==
--- NOTE | 2022-09-08 19:10 | BD ---
EXAMINATION TYPE: Axial Bone Density DATE OF EXAM: 09/07/2022 CLINICAL HISTORY: 67 years old Female. ICD-10 CODE: M81.0 AGE RELATED OSTEOPOROSIS Height: 60 Weight: 144.8 FRAX RISK QUESTIONS: Alcohol (3 or more units per day): no Family History (Parent hip fracture): no Glucocorticoids (More than 3mos): no History of Fracture in Adulthood: no Secondary Osteoporosis: 1. Type 1 Diabetes: no 2. Hyperthyroidism: no 3. Menopause before 45: yes 4. Malnutrition: no 5. Chronic liver disease: no Rheumatoid Arthritis: no Current Tobacco Use: no RISK FACTORS HISTORY OF: Hip Fracture (Right/Left): no Spine Fracture: no History of Wrist Fracture: no Surgery to Spine/Hip(right/left)/Wrist (right/left): no Family History of Osteoporosis: mother Active: yes Diet low in dairy products/other sources of calcium: yes Postmenopausal woman: yes Take estrogen and/or progesterone medications: no Lost more than 2 inches in height since high school: no Frequent falls: no Poor Health: no Hyperparathyroidism: no Adrenal Insufficiency: no MEDICATIONS: Prednisone or other steroids: no Thyroid Medications: no Osteoporosis Medications: Reclast How Long: one injection yearly for past 2 years Additional Medications: BP Meds x2, Calcium, Vit D, Cholesterol Meds, Additional History: EXAM MEASUREMENTS: Bone mineral densitometry was performed using the [employer] System. Bone mineral density as measured about the Lumbar spine is: ----- L1-L4(G/cm2): 1.079 T Score Values are as follows: ----- L1: -0.8 ----- L2: -1.3 ----- L3: -0.9 ----- L4: -0.6 ----- L1-L4: -0.8 Z Score Values are as follows: ----- L1: 0.8 ----- L2: 0.4 ----- L3: 0.7 ----- L4: 1.0 ----- L1-L4: 0.8 Bone mineral density has: increased 7.7% since the study of 08/30/2020 Bone mineral density about the R hip (g/cm2): 0.839 Bone mineral density about the L hip (g/cm2): 0.850 T Score values are as follows: -----R Neck: -2.6 -----L Neck: -2.2 -----R Total: -1.3 -----L Total: -1.3 Z Score values are as follows: -----R Neck: -1.0 -----L Neck: -0.6 -----R Total: 0.1 -----L Total: Bone mineral density has: increased 4.1% since the of 08/30/2018 FRAX%s: The graph provided illustrates a 15.3chance for a major osteoporotic fx and a 4.1chance for t he hips probability for fx in 10 years time. IMPRESSION: Osteoporosis (T Score less than -2.5). There is increased fracture risk and therapy is usually indicated based on age. Re-Screen 1-2 years. NOTE: T-SCORE=SD OF THE YOUNG ADULT MEAN.
== END | disposition home or self-care (01) ==
LOC: RADBDWWP 15:39
PROVIDERS: ATTEND Internal Medicine
DX: M81.0 Age-related osteoporosis without current pathological fracture (principal); M85.89 Other specified disorders of bone density and structure, multiple sites; Z78.0 Asymptomatic menopausal state
CPT/HCPCS: 77080

== ENCOUNTER → 2023-09-25 | Outpatient (CLI) | payer MEDICARE ==
[2023-09-25 12:52] LABS: Basophils # (A) 0.04 X 10*3/uL (0.00-0.10); Basophils % (A) 0.6 %; Eosinophils # (A) 0.12 X 10*3/uL (0.04-0.35); Eosinophils % (A) 1.7 %; HCT 40.7 % (37.2-46.3); HGB 13.1 g/dL (12.0-15.0); Lymphocytes # (A) 1.43 X 10*3/uL (0.90-5.00); Lymphocytes % (A) 20.1 %; MCH 30.5 pg (27.0-32.0); MCHC 32.2 g/dL (32.0-37.0); MCV 94.7 FL (80.0-97.0); Mean Platelet Volume 11.6 FL (9.5-12.2); Monocytes # (A) 0.68 X 10*3/uL (0.20-1.00); Monocytes % (A) 9.6 %; NRBC Per 100 WBC 0 X 10*3/uL (0.00-0.01); Neutrophils # (A) 4.81 X 10*3/uL (1.80-7.70); Neutrophils % (A) 67.7 %; Platelet Count 297 X 10*3/uL (140-440); RDW 13.3 % (11.5-14.5)
[2023-09-25 13:22] LABS: BUN/Creat Ratio 17.91 Ratio (12.00-20.00); Blood Urea Nitrogen 19.7 mg/dL (9.0-27.0); Chol/HDL Ratio 3.14 Ratio; Glucose 100 mg/dL (70-110); LDL Cholesterol,Calculated 82.3 mg/dL (0.0-131.0); Magnesium 2.1 mg/dL (1.5-2.4)
[2023-09-25 13:23] LABS: ALT 20 U/L (8-44); AST 29 U/L (13-35); Albumin 4.3 g/dL (3.8-4.9); Albumin/Globulin Ratio 2.26 Ratio (1.60-3.17); Alkaline Phosphatase 108 U/L (41-126); Calcium 9.1 mg/dL (8.7-10.3); Carbon Dioxide 23.8 mmol/L (21.6-31.8); Chloride 107 mmol/L (96-109); Globulin 1.9 g/dL (1.6-3.3); Potassium 4.8 mmol/L (3.5-5.5); Sodium 144 mmol/L (135-145); Total Bilirubin 0.8 mg/dL (0.3-1.2); Total Protein 6.2 g/dL (6.2-8.2)
[2023-09-25 13:35] LABS: Appearance,Urine Clear (Clear); Bilirubin,Urine Negative (Negative); Blood,Urine Negative (Negative); Color,Urine Yellow (Yellow); Ketones,Urine Negative (Negative); Nitrite,Urine Negative (Negative); Specific Gravity,Urine 1.013 (1.001-1.030); Urobilinogen,Urine 0.2 E.U./DL
== END | disposition home or self-care (01) ==
LOC: LABPAT 09:29
PROVIDERS: ATTEND Internal Medicine
DX: Z00.00 Encounter for general adult medical examination without abnormal findings (principal); M81.0 Age-related osteoporosis without current pathological fracture; E78.2 Mixed hyperlipidemia; I10 Essential (primary) hypertension; R35.0 Frequency of micturition
CPT/HCPCS: 80053; 80061; 81003; 82306; 82523; 83036; 83735; 83970; 84443; 84550; 85025

== ENCOUNTER → 2023-10-19 | Outpatient (CLI) | payer MEDICARE ==
--- NOTE | 2023-10-19 13:14 | US ---
EXAMINATION TYPE: US kidneys/renal and bladder DATE OF EXAM: 10/19/2023 COMPARISON: CT & US 2018 CLINICAL INDICATION: Female, 68 years old with history of N28.9 DISORDER OF KIDNEY AND URETER, UNSPEC IFIED; EXAM MEASUREMENTS: Right Kidney: 9.4 x 6.1 x 4.9 cm Left Kidney: 9.0 x 4.1 x 3.7 cm Right Kidney: No hydronephrosis or masses seen Left Kidney: 2.1cm irregular cystic area mid pole, 1.8cm exophytic cyst superior pole Bladder: wnl Bilateral Jets seen: no IMPRESSION: 1. Left renal cysts
== END | disposition home or self-care (01) ==
LOC: RADUSWWP 12:23
PROVIDERS: ATTEND Internal Medicine
DX: N28.1 Cyst of kidney, acquired (principal)
CPT/HCPCS: 76770

== ENCOUNTER → 2024-02-10 | Outpatient (CLI) | payer MEDICARE ==
[2024-02-10 15:29] LABS: Basophils # (A) 0.04 X 10*3/uL (0.00-0.10); Basophils % (A) 0.6 %; Eosinophils # (A) 0.26 X 10*3/uL (0.04-0.35); HCT 42.7 % (37.2-46.3); HGB 14.1 g/dL (12.0-15.0); Lymphocytes # (A) 1.21 X 10*3/uL (0.90-5.00); Lymphocytes % (A) 18.4 %; MCH 29.8 pg (27.0-32.0); MCV 90.3 FL (80.0-97.0); Mean Platelet Volume 11.5 FL (9.5-12.2); Monocytes # (A) 0.63 X 10*3/uL (0.20-1.00); Monocytes % (A) 9.6 %; NRBC Per 100 WBC 0 X 10*3/uL (0.00-0.01); Neutrophils # (A) 4.43 X 10*3/uL (1.80-7.70); Neutrophils % (A) 67.2 %; Platelet Count 259 X 10*3/uL (140-440); RBC 4.73 X 10*6/uL (4.10-5.20); RDW 13.4 % (11.5-14.5); WBC 6.58 X 10*3/uL (4.50-10.00)
[2024-02-10 15:40] LABS: % Iron Saturation 21.82 (12.00-45.00); ALT 17 U/L (8-44); AST 26 U/L (13-35); Albumin/Globulin Ratio 2.22 Ratio (1.60-3.17); Alkaline Phosphatase 105 U/L (41-126); BUN/Creat Ratio 19.56 Ratio (12.00-20.00); Blood Urea Nitrogen 17.6 mg/dL (9.0-27.0); Calcium 8.9 mg/dL (8.7-10.3); Carbon Dioxide 22.4 mmol/L (21.6-31.8); Chloride 108 mmol/L (96-109); Chol/HDL Ratio 2.96 Ratio; Creatine Kinase 68 U/L (26-186); Globulin 1.8 g/dL (1.6-3.3); Glucose 95 mg/dL (70-110); Iron 67 UG/DL (50-170); LDL Cholesterol,Calculated 80.9 mg/dL (0.0-131.0); Phosphorus 3.8 mg/dL (2.4-5.1); Potassium 4.3 mmol/L (3.5-5.5); Sodium 142 mmol/L (135-145); Total Bilirubin 0.8 mg/dL (0.3-1.2); Total Iron Binding Capacity 307 UG/DL (228-460); Total Protein 5.8 g/dL (6.2-8.2); Uric Acid 3.1 mg/dL (2.9-7.7)
[2024-02-10 15:41] LABS: Ferritin 69.1 ng/mL (10.0-291.0)
[2024-02-11 10:10] LABS: Free Kappa Lt Chain Qnt, Serum 1.72 mg/dL (0.33-1.94); Free Lambda Lt Chain Qnt, Seru 1.07 mg/dL (0.57-2.63)
== END | disposition home or self-care (01) ==
LOC: LABWHC1 10:13
PROVIDERS: ATTEND Internal Medicine
DX: I10 Essential (primary) hypertension (principal); E78.2 Mixed hyperlipidemia; M81.0 Age-related osteoporosis without current pathological fracture; N18.2 Chronic kidney disease, stage 2 (mild); N20.0 Calculus of kidney
CPT/HCPCS: 36415; 80053; 80061; 82306; 82550; 82728; 83036; 83540; 83550; 83735; 83883; 83970; 84100; 84550; 85025

== ENCOUNTER → 2024-05-09 | Outpatient (CLI) | payer MEDICARE ==
[~2024-05-09] MED LIST changes: +SODIUM CHLORIDE 0.9% 250 ML in EMPTY BAG 1 BAG IV PRN; -SODIUM CHLORIDE 0.9% 500 ML 500 ML in EMPTY BAG 1 BAG IV PRN; -ZOLEDRONIC ACID 5 MG in SODIUM CHLORIDE 0.9% 100 ML IV NR
[2024-05-09 13:48] VITALS: BP 134/72; PULSE 51; RESP 16; TEMP 97.4
[2024-05-09] MEDS: ZOLEDRONIC ACID 5 MG in SODIUM CHLORIDE 0.9% 100 ML IV NR (13:51)
[2024-05-09] MEDS: SODIUM CHLORIDE 0.9% 500 ML 500 ML in EMPTY BAG 1 BAG IV PRN (13:51)
== END ==
LOC: PROCWHC3 13:42
PROVIDERS: ATTEND Internal Medicine
DX: M81.0 Age-related osteoporosis without current pathological fracture (principal)
CPT/HCPCS: 96365; J3489